=== PATIENT | male | born 1935 | race Caucasian/White ===

== ENCOUNTER → 2017-01-22 | Outpatient (CLI) | payer MEDICARE ==
[~2017-01-22] MED LIST: REGADENOSON INJ 0.4 MG/5 ML DISP.SYRIN IV ONE
--- NOTE | 2017-01-24 16:08 | RADIOLOGY REPORT ---
STRESS TEST REPORT [id number] ROOM#: DATE OF SERVICE: 01/22/2017 AGE: 81Y ORDER#: [id number] REFERRING MD: EMIGDIO HARE M.D. INDICATION: Assess coronary artery disease. Patient has history of four stents, now with symptoms suggestive of coronary artery disease. PROCEDURE PERFORMED REST/STRESS SINGLE ISOTOPE CARDIOLITE SPECT IMAGING WITH IV LEXISCAN STRESS AND GATED SPECT IMAGING CLINICAL HISTORY This is a 81-year-old male patient with known coronary artery disease an status post four stents, has cardiac risk factors of hypertension and hypercholesterolemia. Current symptomatology suggestive of coronary artery disease symptoms. PROCEDURE The patient received IV Lexiscan 0.4 mg infused over ten seconds. The resting heart rate was 79 bpm and increased to 91 bpm at end infusion. The resting BP was 143/68 and remained stable at 145/55 at end infusion. The patient had symptoms of lightheadedness but no chest pain or pressure tightness. The resting 12 lead EKG showed sinus rhythm with one PVC, nonspecific inferior ST changes. At end infusion, no increased ST changes were seen. Myocardial perfusion imaging was performed at rest 60 minutes following injection of 14.74 mCi Cardiolite. The resting images were poor due to patient's tremors from having to raise both upper extremities above the level of the head for optimal imaging. Cabin [place] relaxed his upper extremities to put on each side but this created bone attenuation artifacts on the resting images, more prominently affecting the inferior wall of the perfusion imaging images. Ten seconds after the IV Lexiscan injection, the patient was injected with 45.6 mCi Cardiolite and flushed. Gated post stress tomographic imaging was performed 60 minutes after stress. FINDINGS The overall quality of the study is poor. This is due to patient's inability to raise his upper extremities above his head to allow for rotation of camera around his torso to take adequate images. He was shaking so much that the small engine technician had to allow both his arms by his side and in so doing, there was signif. attenuation of the left lateral areas of the heart by his left upper extremity skeletal muscle structure. Therefore, the images are suboptimal for interpretation and this becomes a nondiagnostic study. The left ventricular cavity is noted to be normal in size on both the rest and stress studies. There is no evidence of abnormal transient ischemic dilatation of the left ventricle. TID ratio was 1.01. SPECT images were suboptimal but seem to show a moderate area of mild reversible ischemia in the basal inferior wall. Gated SPECT imaging showed normal motion and contraction in the basal inferior wall. The left ventricular ejection fraction was calculated to be 48%. IMPRESSION: 1. MYOCARDIAL PERFUSION IMAGING IS NONDIAGNOSTIC. THERE IS A 2. MODERATE AREA OF MILD REVERSIBLE ISCHEMIA IN THE BASAL INFERIOR WALL BUT 3. NO FIXED PERFUSION DEFECTS. OVERALL 4. LEFT VENTRICULAR SYSTOLIC FUNCTION WAS MILDLY IMPAIRED AT 48%, BUT THERE WAS 5. NORMAL MOTION AND CONTRACTION IN THE BASAL INFERIOR WALL. 6. NO PRIOR STUDIES FOR COMPARISON. INTERPRETING PHYSICIAN: EMIGDIO HARE M.D. /: ADOLFO TT: [id number] ID: [id number] /: [id number] TD: [id number] JOB: [id number] cc:Lilly HOLLOWAY DO > MTDD
== END ==
LOC: RAD 07:04
PROVIDERS: ATTEND Internal Medicine Cardiovascular Disease
DX: I25.10 Atherosclerotic heart disease of native coronary artery without angina pectoris (principal)
CPT/HCPCS: 93017; 78452; A9500; J2785; Q9969

== ENCOUNTER → 2017-01-28 | Outpatient (CLI) | payer MEDICARE ==
[2017-01-28 14:32] LABS: ANION GAP 10 (5-19); BLOOD UREA NITROGEN 20 mg/dL (7-20); CALCIUM 10.5 mg/dL (8.4-10.2); CARBON DIOXIDE 24 mmol/L (22-30); CHLORIDE 107 mmol/L (98-107); CREATININE RESULT 1.32 mg/dL (0.52-1.25); Direct HDL 58 mg/dL (>40); GLUCOSE 86 mg/dL (75-110); MAGNESIUM 1.9 mg/dL (1.6-2.3); POTASSIUM 4.1 mmol/L (3.6-5.0); SODIUM 140.8 mmol/L (137-145); TRIGLYCERIDES 105 mg/dL (<150)
[2017-01-28 14:42] LABS: DIRECT LDL 43 mg/dL (<100)
== END ==
LOC: OD 12:49
PROVIDERS: ATTEND Internal Medicine Cardiovascular Disease
DX: E78.5 Hyperlipidemia, unspecified (principal); Z79.899 Other long term (current) drug therapy
CPT/HCPCS: 36415; 80048; 80061; 83735; 84443

== ENCOUNTER 2017-02-05 18:33 | Emergency (ER) | payer MEDICARE ==
--- NOTE | 2017-02-05 20:24 | ER Document Report ---
ED Medical Screen (RME) - General Chief Complaint: Possible Overdose Stated Complaint: RIGHT LEG AND KNEE PAIN Time Seen by Provider: 02/05/17 20:20 Notes: Patient is brought in by due to a near syncopal episode. Patient and were on a plane from [place] today. states while waiting in the airport in [place] she noticed that her slumped over and was drooling and was somewhat unresponsive. She also then noticed that his pain medication bottle was empty and believes he may have took extra pain medication. Patient is not a good historian but does not remember taking extra pain medication. Patient is receiving pain medication for a swelling painful right knee. Patient and states that his knee has been swollen for greater than 1 week and there is no known injury. Patient has had swelling and pain to this knee several times in the past and it apparently got better after fluid was drained off of it. They do not know of any infection or gout history. There is no known trauma. Patient now is back to mental baseline per . TRAVEL OUTSIDE OF THE [place] IN LAST 30 DAYS: No - Related Data Allergies/Adverse Reactions: No Known Allergies Allergy (Unverified 02/05/17 20:02) Past Medical History - Past Medical History Cardiac Medical History: Reports: Hx Hypercholesterolemia, Hx Hypertension Musculoskeltal Medical History: Reports Hx Arthritis
[2017-02-05 20:47] LABS: ABSOLUTE EOSINOPHILS # (AUTO) 0.2 10^3/uL (0.0-0.6); ABSOLUTE LYMPHOCYTES (AUTO) 1.5 10^3/uL (0.5-4.7); ABSOLUTE MONOCYTES (AUTO) 0.9 10^3/uL (0.1-1.4); ABSOLUTE NEUT (AUTO) 4.4 10^3/uL (1.7-8.2); BASOPHILS % (AUTO) 0.5 % (0-2); EOSINOPHILS % (AUTO) 3.1 % (0-6); HEMATOCRIT 43.9 % (37.9-51.0); HEMOGLOBIN 14.2 g/dL (13.5-17.0); HGB HCT DIFFERENCE -1.3; MEAN CORPUSCULAR HEMOGLOBIN 31.2 pg (27.0-33.4); MEAN CORPUSCULAR HGB CONC 32.4 g/dL (32.0-36.0); MEAN CORPUSCULAR VOLUME 96 fl (80-97); MONOCYTES % (AUTO) 12.1 % (3-13); RED BLOOD COUNT 4.56 10^6/uL (4.35-5.55); SEGMENTED NEUTROPHILS % (AUTO) 62.3 % (42-78)
--- NOTE | 2017-02-05 20:48 | RADIOLOGY REPORT (SQ) ---
EXAM DESCRIPTION: KNEE RIGHT 3 VIEWS COMPLETED DATE/TIME: 02/05/2017 8:37 pm REASON FOR STUDY: pain/swelling COMPARISON: None. NUMBER OF VIEWS: Three views. TECHNIQUE: AP, lateral, and sunrise patella radiographic images acquired of the right knee. LIMITATIONS: None. FINDINGS: MINERALIZATION: Normal. BONES: No acute fracture or dislocation. No worrisome bone lesions. There are prominent patellar oste ophytes. JOINT: There is joint space narrowing in all compartments. OTHER: There is vascular calcification. IMPRESSION: Osteoarthritic changes. No acute findings. TECHNICAL DOCUMENTATION: JOB ID: [id number] [employer]- All Rights Reserved
[2017-02-05 20:55] LABS: ALANINE AMINOTRANSFERASE 31 U/L (21-72); ALBUMIN 4.1 g/dL (3.5-5.0); ALKALINE PHOSPHATASE 71 U/L (38-126); ANION GAP 13 (5-19); ASPARTATE AMINO TRANSFERASE 35 U/L (17-59); BILIRUBIN,DIRECT 0.4 mg/dL (0.0-0.4); BILIRUBIN,TOTAL 0.7 mg/dL (0.2-1.3); BLOOD UREA NITROGEN 28 mg/dL (7-20); CALCIUM 10.9 mg/dL (8.4-10.2); CARBON DIOXIDE 23 mmol/L (22-30); CHLORIDE 105 mmol/L (98-107); CREATININE RESULT 1.49 mg/dL (0.52-1.25); GLUCOSE 109 mg/dL (75-110); POTASSIUM 3.6 mmol/L (3.6-5.0); SODIUM 141.4 mmol/L (137-145); TOTAL PROTEIN 7.3 g/dL (6.3-8.2)
[2017-02-05] MEDS ORDERED: HYDROCHLOROTHIAZIDE 25 MG TABLET PO ONE (23:02)
--- NOTE | 2017-02-05 23:03 | ER Document Report ---
ED General - General Chief Complaint: Possible Overdose Stated Complaint: RIGHT LEG AND KNEE PAIN Time Seen by Provider: 02/05/17 20:20 Notes: Patient is an 81-year-old male who presents with complaint of being poorly responsive. The says that he has chronic knee pain it has been worse over the last month. They went on a trip to [place]. On the way back they were split up on the plane and he had his first class. says that he had 3 Percocet pills in his bottle before she from him playing. When he rolled off the plane he was poorly responsive and drooling. She knows that his Percocet bottle was empty and she spent suspect that he took all 3 pills on the plane flight over. Patient himself does not remember doing this. Patient says he does not know why his pill bottles empty. No head trauma. No falls. No injuries. He denies headache. No chest pain. No shortness of breath. The only complaint of pain he has is in his right knee. He said no redness or warmth to the knee. He is to follow with a orthopedist in [place]. He has not yet followed with orthopedist here in [place] since they moved back to [place] 2 months ago. TRAVEL OUTSIDE OF THE [place] IN LAST 30 DAYS: No - Related Data Allergies/Adverse Reactions: No Known Allergies Allergy (Unverified 02/05/17 20:02) Past Medical History - Social History Smoking Status: Unknown if Ever Smoked Frequency of alcohol use: None Drug Abuse: None Family History: Reviewed & Not Pertinent - Past Medical History Cardiac Medical History: Reports: Hx Hypercholesterolemia, Hx Hypertension Musculoskeltal Medical History: Reports Hx Arthritis Review of Systems - Review of Systems Notes: My Normal Review Basic REVIEW OF SYSTEMS: CONSTITUTIONAL : Denies fever, chills, or sweats. Denies recent illness. EENT: Denies eye, ear, throat, or mouth pain or symptoms. Denies nasal or sinus congestion. CARDIOVASCULAR: Denies chest pain. RESPIRATORY: Denies cough, cold, or chest congestion. Denies shortness of breath, difficulty breathing, or wheezing. GASTROINTESTINAL: Denies abdominal pain. Denies nausea, vomiting, or diarrhea. Denies constipation. Last BM: MUSCULOSKELETAL: Right knee pain SKIN: Denies rash or skin lesions. NEUROLOGICAL: Mental status that is now resolved. Denies headache. Denies weakness or paralysis or loss of use of either side. Denies problems with gait or speech. Denies sensory or motor loss. ALL OTHER SYSTEMS REVIEWED AND NEGATIVE. Physical Exam - Vital signs Vitals: Temp Pulse BP Pulse Ox 97.5 F 102 H 160/103 H 97 02/05/17 18:47 02/05/17 18:47 02/05/17 18:47 02/05/17 18:47 - Notes Notes: General Appearance: Well nourished, alert, cooperative, no acute distress, mild obvious discomfort. Vitals: reviewed, See vital signs table. Head: no swelling or tenderness to the head Eyes: PERRL, EOMI, Conjuctiva clear Mouth: No decreasd moisture Neck: Supple, no neck tenderness, No thyromegaly Lungs: No wheezing, No rales, No rhonci, No accessory muscle use, good air exchange bilaterally. Heart: Normal rate, Regular rythm, No murmur, no rub Abdomen: Normal BS, soft, No rigidity, No abdominal tenderness, No guarding, no rebound, no abdominal masses, no organomegaly Extremities: strength 5/5 in all extremities, good pulses in all extremities, some chronic swelling to the right knee. No redness or warmth. Some pain to palpation over the patella. We are able to put his knee through some range of motion. He does have some pain in doing so but she does have passive range of motion without stiffness. No edema. Skin: warm, dry, appropriate color, no rash Neuro: speech clear, oriented x 3, normal affect, responds appropriately to questions. Nerves II through XII are intact. Distal sensation intact. Good strength in all 4 extremities. Course - Re-evaluation Re-evalutation: 02/06/17 05:55 Patient requests that I refill the Percocet prescription. I informed him that I do not think this is a good idea. The medicines that he actually took in the plane were actually his grandsons according to the . She said that he used to get some from his orthopedist but not had them in a while. He does have Ultram at home. The thinks he still has some Ultram pills but the patient himself says that he thinks is all. I will write a prescription for Ultram. I informed the that if when they get home she realizes that he does still have full bottle of Ultram then she can tear up my prescription. Otherwise seems very reliable and agrees to do this. Patient does not have any signs of infection to the right knee. Seems to be his chronic swelling. X-ray shows arthritis. Patient uses a cane but informed him that he should be using a walker. The says she has been trying to get him to use a walker but he refuses. I talked to the patient at length about how walker would be much easier on his knee and gave him having to put as much pressure on his knee. Also will refer him to local orthopedist. I encouraged him return to ER if is any redness or swelling to the knee if they have any further concerns. Patient agrees with plan and agrees with plan and patient will be discharged home. Dictation of this chart was performed using voice recognition software; therefore, there may be some unintended grammatical errors. - Vital Signs Vital signs: Temp Pulse Resp BP Pulse Ox 97.5 F 50 L 18 170/64 H 99 02/05/17 18:47 02/05/17 22:07 02/05/17 22:07 02/05/17 23:01 02/05/17 23:01 - Laboratory Result Diagrams: 02/05/17 20:26 02/05/17 20:26 Laboratory results interpreted by me: 02/05/17 02/05/17 20:26 20:26 RDW 15.0 H BUN 28 H Creatinine 1.49 H Est GFR ( Amer) 55 L Est GFR (Non-Af Amer) 45 L Calcium 10.9 H Discharge - Discharge Clinical Impression: Knee pain, right Qualifiers: Chronicity: chronic Qualified Code(s): M25.561 - Pain in right knee Opiate overdose Qualifiers: Encounter type: initial encounter Injury intent: accidental or unintentional Qualified Code(s): T40.601A - Poisoning by unspecified narcotics, accidental ( unintentional), initial encounter Hypertension Qualifiers: Hypertension type: essential hypertension Qualified Code(s): I10 - Essential ( primary) hypertension Condition: Good Disposition: HOME, SELF-CARE Additional Instructions: Please use your walker at home. Please take the Tramadol for pain at home. Please be sure to take your medications as prescribed. Please follow up with Dr. Garcia, orthopedist, in regards to your knee pain. Return to th ER immediately if you have worsening pain, fevers, redness or increased warmth to the knee, or if you feel unwell. Return to the ER immediately if Mr. Rodriguez is not acting appropriately Prescriptions: Tramadol HCl 50 mg PO Q6 PRN #20 tablet PRN Reason: Referrals: LANDY GARCIA MD [ACTIVE STAFF] - Follow up in 3-5 days TONY TONG DO [Primary Care Provider] - 02/07/17
[2017-02-05 23:06] VITALS: BP 170/64
== END 2017-02-05 23:20 | disposition home or self-care (01) ==
LOC: ER 18:33
DX: T40.601A Poisoning by unspecified narcotics, accidental (unintentional), initial encounter (principal); Y92.813 Airplane as the place of occurrence of the external cause; M17.11 Unilateral primary osteoarthritis, right knee; M25.561 Pain in right knee; G89.29 Other chronic pain; I10 Essential (primary) hypertension; Z79.891 Long term (current) use of opiate analgesic
CPT/HCPCS: 36415; 80053; 85025; 99284

== ENCOUNTER → 2017-08-13 | Outpatient (CLI) | payer MEDICARE ==
[2017-08-13 15:50] LABS: ABSOLUTE BASOPHILS # (AUTO) 0.1 10^3/uL (0.0-0.2); ABSOLUTE EOSINOPHILS # (AUTO) 0.4 10^3/uL (0.0-0.6); ABSOLUTE LYMPHOCYTES (AUTO) 2.6 10^3/uL (0.5-4.7); ABSOLUTE MONOCYTES (AUTO) 0.8 10^3/uL (0.1-1.4); ABSOLUTE NEUT (AUTO) 3.2 10^3/uL (1.7-8.2); BASOPHILS % (AUTO) 0.8 % (0-2); EOSINOPHILS % (AUTO) 5.3 % (0-6); HEMATOCRIT 43.5 % (37.9-51.0); HEMOGLOBIN 14.4 g/dL (13.5-17.0); LYMPHOCYTES % (AUTO) 36.9 % (13-45); MEAN CORPUSCULAR HEMOGLOBIN 30.3 pg (27.0-33.4); MEAN CORPUSCULAR HGB CONC 33.2 g/dL (32.0-36.0); MEAN CORPUSCULAR VOLUME 91 fl (80-97); MONOCYTES % (AUTO) 11.7 % (3-13); PLATELET COUNT 125 10^3/uL (150-450); RED BLOOD COUNT 4.76 10^6/uL (4.35-5.55); RED CELL DISTRIBUTION WIDTH 14.6 % (11.5-14.0); SEGMENTED NEUTROPHILS % (AUTO) 45.3 % (42-78); TOTAL CELLS COUNTED % (AUTO) 100 %
[2017-08-13 16:12] LABS: ALBUMIN 3.6 g/dL (3.5-5.0); ANION GAP 7 (5-19); BLOOD UREA NITROGEN 23 mg/dL (7-20); CALCIUM 9.5 mg/dL (8.4-10.2); CARBON DIOXIDE 26 mmol/L (22-30); CHLORIDE 108 mmol/L (98-107); GLUCOSE 71 mg/dL (75-110); PHOSPHORUS 3.3 mg/dL (2.5-4.5); POTASSIUM 4.3 mmol/L (3.6-5.0); SODIUM 140.9 mmol/L (137-145)
[2017-08-13 16:14] LABS: APPEARANCE,URINE CLEAR; BILIRUBIN,URINE NEGATIVE (NEGATIVE); COLOR,URINE YELLOW; GLUCOSE, URINE NEGATIVE (NEGATIVE); KETONES,URINE NEGATIVE (NEGATIVE); LEUKOCYTE ESTERASE,URINE NEGATIVE (NEGATIVE); NITRITE,URINE NEGATIVE (NEGATIVE); PROTEIN,URINE NEGATIVE (NEGATIVE); URINE SPECIFIC GRAVITY 1.009; UROBILINOGEN,URINE NEGATIVE mg/dL (<2.0)
[2017-08-15 10:38] LABS: MICROALBUMIN URINE 44.4 ug/mL (Not Estab.)
== END ==
LOC: OD 15:18
PROVIDERS: ATTEND Internal Medicine Nephrology
DX: N18.3 Chronic kidney disease, stage 3 (moderate) (principal); I25.10 Atherosclerotic heart disease of native coronary artery without angina pectoris; E78.2 Mixed hyperlipidemia
CPT/HCPCS: 36415; 80048; 81001; 82040; 82043; 82306; 82570; 83970; 84100; 85025

== ENCOUNTER → 2017-09-27 | Outpatient (CLI) | payer MEDICARE ==
--- NOTE | 2017-09-27 14:36 | RADIOLOGY REPORT (SQ) ---
EXAM DESCRIPTION: U/S RETROPERITON (RENAL/AORTA) COMPLETED DATE/TIME: 09/27/2017 2:24 pm REASON FOR STUDY: CKD STAGE 3 N18.3 CHRONIC KIDNEY DISEASE, STAGE 3 (MODERATE) COMPARISON: None. TECHNIQUE: Dynamic and static grayscale images acquired of the kidneys and bladder and recorded on P ACS. Additional selected color Doppler and spectral images recorded. LIMITATIONS: Body habitus, bowel gas FINDINGS: Limited visualization kidneys. Both kidneys are normal size. Grossly normal cortical thi ckness. No hydronephrosis. Marked bladder distention. No gross bladder stones IMPRESSION: Very limited study. No hydronephrosis. Marked distention of the urinary bladder. TECHNICAL DOCUMENTATION: JOB ID: [id number] [employer]- All Rights Reserved [place] location - IP/workstation name: [email or web address]
== END ==
LOC: RAD 13:41
PROVIDERS: ATTEND Internal Medicine Nephrology
DX: N18.3 Chronic kidney disease, stage 3 (moderate) (principal)
CPT/HCPCS: 76770

== ENCOUNTER → 2017-10-14 | Outpatient (CLI) | payer MEDICARE ==
[2017-10-14 14:16] LABS: ANION GAP 12 (5-19); BLOOD UREA NITROGEN 42 mg/dL (7-20); CALCIUM 10.4 mg/dL (8.4-10.2); CARBON DIOXIDE 26 mmol/L (22-30); CHLORIDE 111 mmol/L (98-107); GLUCOSE 83 mg/dL (75-110); POTASSIUM 4.9 mmol/L (3.6-5.0); SODIUM 148.5 mmol/L (137-145)
[2017-10-15 12:38] LABS: CREATININE URINE 146.8 mg/dL (Not Estab.); MICROALBUMIN URINE 38.2 ug/mL (Not Estab.)
== END ==
LOC: OD 13:15
PROVIDERS: ATTEND Internal Medicine Nephrology
DX: N18.3 Chronic kidney disease, stage 3 (moderate) (principal); R80.9 Proteinuria, unspecified; E21.3 Hyperparathyroidism, unspecified
CPT/HCPCS: 36415; 80048; 82043; 82570; 83970

== ENCOUNTER → 2017-11-19 | Outpatient (CLI) | payer MEDICARE ==
[2017-11-19 18:51] LABS: ANION GAP 9 (5-19); BLOOD UREA NITROGEN 34 mg/dL (7-20); CALCIUM 10.2 mg/dL (8.4-10.2); CARBON DIOXIDE 28 mmol/L (22-30); CHLORIDE 107 mmol/L (98-107); GLUCOSE 71 mg/dL (75-110); SODIUM 144.2 mmol/L (137-145)
== END ==
LOC: OD 17:33
PROVIDERS: ATTEND Internal Medicine Nephrology
DX: N17.9 Acute kidney failure, unspecified (principal); N18.3 Chronic kidney disease, stage 3 (moderate)
CPT/HCPCS: 36415; 80048

== ENCOUNTER → 2017-11-23 | Outpatient (CLI) | payer MEDICARE ==
[2017-11-23 12:38] LABS: CHOLESTEROL 133.79 mg/dL (0-200); TRIGLYCERIDES 71 mg/dL (<150)
[2017-11-23 12:40] LABS: ALANINE AMINOTRANSFERASE 34 U/L (21-72); ALBUMIN 3.7 g/dL (3.5-5.0); ALKALINE PHOSPHATASE 56 U/L (38-126); ASPARTATE AMINO TRANSFERASE 35 U/L (17-59); BILIRUBIN,DIRECT 0.3 mg/dL (0.0-0.4); BILIRUBIN,TOTAL 0.4 mg/dL (0.2-1.3); TOTAL PROTEIN 6.3 g/dL (6.3-8.2)
[2017-11-23 12:41] LABS: ANION GAP 10 (5-19); BLOOD UREA NITROGEN 35 mg/dL (7-20); CALCIUM 10.2 mg/dL (8.4-10.2); CARBON DIOXIDE 26 mmol/L (22-30); CHLORIDE 111 mmol/L (98-107); GLUCOSE 89 mg/dL (75-110); POTASSIUM 5.2 mmol/L (3.6-5.0); SODIUM 147.4 mmol/L (137-145)
[2017-11-23 12:49] LABS: DIRECT LDL 55 mg/dL (<100)
== END ==
LOC: OD 10:25
PROVIDERS: ATTEND Internal Medicine Cardiovascular Disease
DX: E78.5 Hyperlipidemia, unspecified (principal); I10 Essential (primary) hypertension; Z79.899 Other long term (current) drug therapy
CPT/HCPCS: 36415; 80048; 80061; 80076; 83735; 84443

== ENCOUNTER → 2018-02-06 | Outpatient (CLI) | payer MEDICARE ==
[2018-02-06 14:26] LABS: ANION GAP 15 (5-19); BLOOD UREA NITROGEN 34 mg/dL (7-20); CALCIUM 10.1 mg/dL (8.4-10.2); CARBON DIOXIDE 21 mmol/L (22-30); CHLORIDE 109 mmol/L (98-107); GLUCOSE 94 mg/dL (75-110); POTASSIUM 4.7 mmol/L (3.6-5.0); SODIUM 144.8 mmol/L (137-145)
== END ==
LOC: OD 13:24
PROVIDERS: ATTEND Internal Medicine Geriatric Medicine
DX: N18.3 Chronic kidney disease, stage 3 (moderate) (principal)
CPT/HCPCS: 36415; 80048

== ENCOUNTER 2018-03-20 12:29 | Inpatient (IN) | payer MEDICARE ==
--- NOTE | 2018-03-20 12:44 | ER Document Report ---
ED Medical Screen (RME) - General Chief Complaint: Weakness Stated Complaint: CONFUSION Time Seen by Provider: 03/20/18 12:39 Notes: This 82-year-old male patient became confused yesterday on a ride down to [place] to the [place] clinic to have his hearing checked. He also complained of pain over the left side of his head. Today the pain seems to be better, but the confusion is as bad or worse. The patient has very deliberate speech, states he has difficulty reading. He was supposed to have outpatient lab work done today, as they are following his kidney function. I have greeted and performed a rapid initial assessment of this patient. A comprehensive ED assessment and evaluation of the patient, analysis of test results and completion of the medical decision making process will be conducted by additional ED providers. TRAVEL OUTSIDE OF THE [place] IN LAST 30 DAYS: No - Related Data Allergies/Adverse Reactions: No Known Allergies Allergy (Verified 03/20/18 12:31) Past Medical History - Past Medical History Cardiac Medical History: Reports: Hx Hypercholesterolemia, Hx Hypertension Musculoskeltal Medical History: Reports Hx Arthritis Physical Exam - Vital signs Vitals: Temp Pulse Resp BP Pulse Ox 98.7 F 81 14 131/59 H 99 03/20/18 12:37 03/20/18 12:37 03/20/18 12:37 03/20/18 12:37 03/20/18 12:37 Course - Vital Signs Vital signs: Temp Pulse Resp BP Pulse Ox 98.7 F 81 14 131/59 H 99 03/20/18 12:37 03/20/18 12:37 03/20/18 12:37 03/20/18 12:37 03/20/18 12:37 Doctor's Discharge - Discharge Referrals: YARELIS HARMON MD [Primary Care Provider] - Follow up as needed
--- NOTE | 2018-03-20 13:07 | RADIOLOGY REPORT (SQ) ---
EXAM DESCRIPTION: CT HEAD WITHOUT COMPLETED DATE/TIME: 03/20/2018 12:56 pm REASON FOR STUDY: Confusion times 2 days COMPARISON: None. TECHNIQUE: Axial images acquired through the brain without intravenous contrast. Images reviewed wi th bone, brain and subdural windows. Additional sagittal and coronal reconstructions were generated. Images stored on PACS. All CT scanners at this facility use dose modulation, iterative reconstruction, and/or weight based d osing when appropriate to reduce radiation dose to as low as reasonably achievable (ALARA). [facility]: Dose Right [facility]: CareDose [facility]: Dose Right [facility]: Teradose 4D [facility]: [employer] RADIATION DOSE: CT Rad equipment meets quality standard of care and radiation dose reduction techniq ues were employed. CTDIvol: 53.2 mGy. DLP: 1097 mGy-cm. mGy. LIMITATIONS: None. FINDINGS: VENTRICLES: Normal size and contour. CEREBRUM: Early subacute moderate-sized nonhemorrhagic infarct in the left occipital and posterior te mporal cortex and subcortical white matter, best shown on axial images 03/19/2016. There is sulcal ef facement but no midline shift Remainder of the cerebral hemispheres are grossly intact. No midline shift. CEREBELLUM: No masses. No hemorrhage. No alteration of density. No evidence for acute infarction. EXTRAAXIAL SPACES: No fluid collections. No masses. ORBITS AND GLOBE: No intra- or extraconal masses. Normal contour of globe without masses. CALVARIUM: No fracture. PARANASAL SINUSES: No fluid or mucosal thickening. SOFT TISSUES: No mass or hematoma. OTHER: No other significant finding. 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 EVIDENCE OF ACUTE STROKE: Yes COMMENT: Quality ID # [id number]: Final reports with documentation of one or more dose reduction techniques (e.g., Automated exposure control, adjustment of the mA and/or kV according to patient size, use of iterative reconstruction technique) TECHNICAL DOCUMENTATION: JOB ID: [id number] [employer]- All Rights Reserved [place] location - IP/workstation name: [email or web address]
[2018-03-20 13:20] LABS: ABSOLUTE EOSINOPHILS # (AUTO) 0.3 10^3/uL (0.0-0.6); ABSOLUTE LYMPHOCYTES (AUTO) 2.1 10^3/uL (0.5-4.7); ABSOLUTE MONOCYTES (AUTO) 0.7 10^3/uL (0.1-1.4); ABSOLUTE NEUT (AUTO) 4.9 10^3/uL (1.7-8.2); BASOPHILS % (AUTO) 0.6 % (0-2); EOSINOPHILS % (AUTO) 3.5 % (0-6); HEMATOCRIT 39.9 % (37.9-51.0); HEMOGLOBIN 13.4 g/dL (13.5-17.0); LYMPHOCYTES % (AUTO) 26.3 % (13-45); MEAN CORPUSCULAR HEMOGLOBIN 30.9 pg (27.0-33.4); MEAN CORPUSCULAR HGB CONC 33.6 g/dL (32.0-36.0); MEAN CORPUSCULAR VOLUME 92 fl (80-97); MONOCYTES % (AUTO) 8.2 % (3-13); PLATELET COUNT 144 10^3/uL (150-450); RED BLOOD COUNT 4.34 10^6/uL (4.35-5.55); RED CELL DISTRIBUTION WIDTH 13.9 % (11.5-14.0); SEGMENTED NEUTROPHILS % (AUTO) 61.4 % (42-78); TOTAL CELLS COUNTED % (AUTO) 100 %
[2018-03-20 13:31] LABS: ALANINE AMINOTRANSFERASE 33 U/L (21-72); ALBUMIN 3.7 g/dL (3.5-5.0); ALKALINE PHOSPHATASE 53 U/L (38-126); ANION GAP 11 (5-19); ASPARTATE AMINO TRANSFERASE 30 U/L (17-59); BILIRUBIN,DIRECT 0.3 mg/dL (0.0-0.4); BILIRUBIN,TOTAL 0.6 mg/dL (0.2-1.3); BLOOD UREA NITROGEN 43 mg/dL (7-20); CALCIUM 10.4 mg/dL (8.4-10.2); CARBON DIOXIDE 22 mmol/L (22-30); CHLORIDE 109 mmol/L (98-107); CREATINE KINASE 127 U/L (55-170); GLUCOSE 104 mg/dL (75-110); POTASSIUM 5.2 mmol/L (3.6-5.0); SODIUM 141.7 mmol/L (137-145); TOTAL PROTEIN 6.6 g/dL (6.3-8.2)
[2018-03-20 13:43] LABS: CREATINE KINASE MB 1.4 ng/mL (<4.55); TROPONIN I 0.015 ng/mL
--- NOTE | 2018-03-20 14:03 | ER Document Report ---
ED Neuro Symptoms/Deficit - General Chief Complaint: Weakness Stated Complaint: CONFUSION Time Seen by Provider: 03/20/18 12:39 Notes: Patient says that he "cannot read, cannot talk right," since yesterday. He says he feels "weird". Patient's says that when he tries to talk that it is coming out as "gibberish", although it does seem to be a little bit better today than yesterday. Patient says he is having trouble with his thinking process. He can walk and does not have any weakness of either arm or leg. Has never had this previously. No history of stroke. Says he also had a headache on the left side of his head yesterday which is now gone. Other history: Cholecystectomy, bowel resection, kidney disease, hypertension, high cholesterol, coronary stents times for a couple of years ago. Patient had a sleep study done Saturday night. TRAVEL OUTSIDE OF THE [place] IN LAST 30 DAYS: No - Related Data Allergies/Adverse Reactions: No Known Allergies Allergy (Verified 03/20/18 12:31) Past Medical History - Social History Smoking Status: Unknown if Ever Smoked Frequency of alcohol use: None Drug Abuse: None Family History: Reviewed & Not Pertinent Patient has suicidal ideation: No Patient has homicidal ideation: No - Past Medical History Cardiac Medical History: Reports: Hx Hypercholesterolemia, Hx Hypertension Neurological Medical History: Denies: Hx Cerebrovascular Accident, Hx Seizures Musculoskeletal Medical History: Reports Hx Arthritis Past Surgical History: Reports: Hx Cholecystectomy, Hx Colostomy - Partial colectomy for infection, resulted in colostomy, reversed Review of Systems - Review of Systems Notes: REVIEW OF SYSTEMS: CONSTITUTIONAL : Denies fever. EENT: Denies eye, ear, nose or mouth or throat pain or other symptoms. CARDIOVASCULAR: Denies chest pain. RESPIRATORY: Denies cough, chest congestion, or shortness of breath. GASTROINTESTINAL: Denies abdominal pain or nausea, vomiting, or diarrhea. GENITOURINARY: Denies difficulty or painful urinating, urinary frequency, blood in urine. MUSCULOSKELETAL: Denies back or neck pain. Denies joint pain or swelling. SKIN: Denies rash or skin lesions. NEUROLOGICAL: Denies LOC or altered mental status. Had left-sided headache yesterday, but is gone today. Denies sensory loss or motor deficits. Intermittently confused. ALL OTHER SYSTEMS REVIEWED AND NEGATIVE. Physical Exam - Vital signs Vitals: Temp Pulse Resp BP Pulse Ox 98.7 F 81 14 131/59 H 99 03/20/18 12:37 03/20/18 12:37 03/20/18 12:37 03/20/18 12:37 03/20/18 12:37 Interpretation: Normal - Notes Notes: PHYSICAL EXAMINATION: GENERAL: Well-appearing, in no acute distress. Can ambulate without assistance. HEAD: Atraumatic, normocephalic. EYES: Pupils equal round and reactive to light, extraocular movements intact. ENT: oropharynx clear without exudates. Moist mucous membranes. NECK: Normal range of motion, supple. No b carotid ruits heard. LUNGS: Breath sounds clear and equal bilaterally. HEART: Regular rate and rhythm without murmurs. ABDOMEN: Soft, nontender. No guarding or rebound. No masses. BACK: No tenderness throughout entire back. EXTREMITIES: Normal range of motion without pain. NEUROLOGICAL: Speech is understandable, but is somewhat jerky and not smooth flowing. Seems as if he has to think about his words as he is pronouncing them. Normal gait. Normal sensory, motor, and reflex exams. Awake, alert, and oriented x3. Cranial nerves normal. PSYCH: Normal mood, normal affect. SKIN: Warm, dry, no rashes. Course - Re-evaluation Re-evalutation: 03/20/18 14:27 Discussed the results of patient's CT scan with Dr. Russell, his primary care provider. Patient will be started on aspirin and admitted to [facility]. - Vital Signs Vital signs: Temp Pulse Resp BP Pulse Ox 98.7 F 81 14 131/59 H 99 03/20/18 12:37 03/20/18 12:37 03/20/18 12:37 03/20/18 12:37 03/20/18 12:37 - Laboratory Result Diagrams: 03/20/18 12:55 03/20/18 12:55 Laboratory results interpreted by me: 03/20/18 03/20/18 12:55 12:55 RBC 4.34 L Hgb 13.4 L Plt Count 144 L Potassium 5.2 H Chloride 109 H BUN 43 H Creatinine 2.32 H Est GFR ( Amer) 33 L Est GFR (Non-Af Amer) 27 L Calcium 10.4 H - Diagnostic Test Radiology reviewed: Image reviewed, Reports reviewed - CT scan shows a subacute nonhemorrhagic infarct in the left occipital and posterior temporal lobes. - EKG Interpretation by Me EKG shows normal: Sinus rhythm Rate: Normal Heart block present: 1st Degree Critical Care Note - Critical Care Note Total time excluding time spent on procedures (mins): 40 Discharge - Discharge Clinical Impression: Stroke Condition: Stable Disposition: ADMITTED INPATIENT Admitting Provider: Yvonne Unit Admitted: [facility]
[2018-03-20] MEDS ORDERED: ASPIRIN 81 MG TABLET, CHEWABLE PO ONE (14:27)
[2018-03-20 14:54] LABS: APPEARANCE,URINE CLEAR; BILIRUBIN,URINE NEGATIVE (NEGATIVE); COLOR,URINE YELLOW; GLUCOSE, URINE NEGATIVE (NEGATIVE); KETONES,URINE NEGATIVE (NEGATIVE); LEUKOCYTE ESTERASE,URINE MODERATE (NEGATIVE); NITRITE,URINE NEGATIVE (NEGATIVE); PROTEIN,URINE NEGATIVE (NEGATIVE); URINE SPECIFIC GRAVITY 1.011; UROBILINOGEN,URINE NEGATIVE mg/dL (<2.0)
--- NOTE | 2018-03-20 20:13 | PDOC H&P ---
History of Present Illness Admission Date/PCP: 03/20/18 14:29 YARELIS EDEN History of Present Illness: HENRY VAZQUEZ is a 82 year old male patient known to my practice who presented to the ED with complain of weakness nfusion. Patient reported that he had sleep study completed yesterday at local sleep study facility. He subsequently went on his usual daily activities but developed some discomfort around the site of electrode placement for his sleep study. [facility] but noted that his headache discomfort persist and at about the time of leaving the facility he was not able to speak. He went back home, took some Tylenol and lay down. reported that his speech thereafter have been gibberish in character and patient demonstrated difficulty with finding his words. He denied any palpitation, chest pain, dizziness, fever or chills.. No nausea, vomiting, abdominal pain, diarrhea, flank pain, dysuria, hematuria or difficulty with voiding. His initial evaluation in the ED was remarkable for speech pattern abnormality and CT scan of head did revealed subacute occipital and posterior left temporal lobe nonhemorrhagic infarct. He was advised hospitalization for further evaluation and management. His morbidities include Hypertension, Hyperlipidemia, Rheumatoid Arthritis, obstructive sleep apnea, persistent insomnia, chronic kidney disease stage 3, and glaucoma. He denied cigarette smoking, alcohol abuse ofr illicit drug usage. Past Medical History Cardiac Medical History: Reports: Hyperlipidema, Hypertension Neurological Medical History: Denies: Seizures Musculoskeltal Medical History: Reports: Arthritis Past Surgical History Past Surgical History: Reports: Cholecystectomy, Colostomy - Partial colectomy for infection, resulted in colostomy, reversed Social History Smoking Status: Unknown if Ever Smoked Last Time Smoked: 1957 Frequency of Alcohol Use: Rare Hx Recreational Drug Use: No Drugs: None - Advance Directive Resuscitation Status: Full Code Family History Family History: Reviewed & Not Pertinent Parental Family History Reviewed: Yes Children Family History Reviewed: Yes Sibling(s) Family History Reviewed.: Yes Medication/Allergy Home Medications: Aspirin [Aspirin EC] 81 mg PO DAILY 03/20/18 Bimatoprost [Lumigan 0.01% Oph Soln 2.5 ml/Bottle] 1 drop OU DAILY 03/20/18 Brimonidine Tartrate/Timolol [Combigan 0.2%-0.5% Eye Drops] 1 drop OU BID Calcifediol [Rayaldee] 30 mcg PO QHS 03/20/18 Hydroxychloroquine Sulfate [Plaquenil 200 mg Tablet] 200 mg PO BID 03/20/18 Lisinopril [Prinivil 10 mg Tablet] 10 mg PO DAILY 03/20/18 Metoprolol Succinate [Toprol Xl 25 mg Tab.sr] 25 mg PO DAILY 03/20/18 Mirabegron [Myrbetriq] 50 mg PO DAILY 03/20/18 Multivitamin [Daily Multiple Vitamin] 1 tab PO DAILY 03/20/18 Quetiapine Fumarate [Seroquel] 50 mg PO QHS 03/20/18 Rosuvastatin Calcium [Crestor 10 mg Tablet] 10 mg PO QHS 03/20/18 Tramadol HCl [Ultram 50 mg Tablet] 50 mg PO BIDP PRN 03/20/18 Trazodone HCl [Desyrel 50 mg Tablet] 50 mg PO QHS 03/20/18 Allergies/Adverse Reactions: No Known Allergies Allergy (Verified 03/20/18 12:31) Review of Systems Constitutional: PRESENT: headache(s) - more of discomfirt as per patient assessment Eyes: PRESENT: visual disturbances - CAWG Ears: PRESENT: hearing changes Nose, Mouth, and Throat: PRESENT: headache(s). ABSENT: as per HPI, mouth pain, sore throat, vertigo, other Cardiovascular: ABSENT: chest pain, dyspnea on exertion, edema, orthropnea, palpitations Respiratory: ABSENT: cough, hemoptysis Gastrointestinal: ABSENT: abdominal pain, constipation, diarrhea, hematemesis, hematochezia, nausea, vomiting Genitourinary: ABSENT: dysuria, hematuria Musculoskeletal: PRESENT: deformity - related to multiple joint involvement with Rheumatid arthritis and osteoarthritis Integumentary: ABSENT: rash, wounds Neurological: PRESENT: abnormal speech. ABSENT: as per HPI, abnormal gait, abnormal movements, confusion, convulsions, dizziness, focal weakness, frequent falls, lack of coordination, memory loss, numbness, paresthesias, restless legs , syncope, tingling, tremor(s), vertigo, weakness, other Psychiatric: ABSENT: anxiety, depression, homidical ideation, suicidal ideation Endocrine: ABSENT: cold intolerance, heat intolerance, polydipsia, polyuria Hematologic/Lymphatic: ABSENT: easy bleeding, easy bruising, lymphadenopathy Physical Exam Vital Signs: Temp Pulse Resp BP Pulse Ox 98.3 F 82 16 116/67 100 03/20/18 16:20 03/20/18 16:20 03/20/18 16:20 03/20/18 16:20 03/20/18 16:20 General appearance: PRESENT: no acute distress, well-developed, well-nourished Head exam: PRESENT: atraumatic, normocephalic Eye exam: PRESENT: conjunctiva pink, EOMI, PERRLA. ABSENT: scleral icterus Ear exam: PRESENT: normal external ear exam Mouth exam: PRESENT: moist Respiratory exam: PRESENT: clear to auscultation heaven Cardiovascular exam: PRESENT: RRR. ABSENT: diastolic murmur, rubs, systolic murmur Pulses: PRESENT: +1 pedal pulses bilateral Vascular exam: PRESENT: normal capillary refill. ABSENT: pallor GI/Abdominal exam: PRESENT: normal bowel sounds, soft. ABSENT: distended, guarding, mass, organolmegaly, rebound, tenderness Rectal exam: PRESENT: deferred Extremities exam: ABSENT: pedal edema Musculoskeletal exam: PRESENT: deformity - related to rheumatoid and osteoarthritis Neurological exam: PRESENT: alert, awake, oriented to person, oriented to place , oriented to time, oriented to situation, CN II-XII grossly intact, other - demonstrable dysarthria. ABSENT: motor sensory deficit Psychiatric exam: PRESENT: appropriate affect, normal mood. ABSENT: homicidal ideation, suicidal ideation Skin exam: PRESENT: dry, warm Results Laboratory Results: I reviewed his laboratory results on [employer] and form significant part of my medical decision making. Impressions: Head CT 03/20/18 12:42 IMPRESSION: Early subacute moderate-sized nonhemorrhagic infarct left occipital and posterior temporal lobes. EVIDENCE OF ACUTE STROKE: Yes Assessment & Plan - Diagnosis (1) Stroke, thrombotic Qualifiers: Precerebral and cerebral artery: unspecified cerebral artery Qualified Code (s): I63.30 - Cerebral infarction due to thrombosis of unspecified cerebral artery Is this a current diagnosis for this admission?: Yes Plan: See admitting attending physician orders. (2) Dysarthria due to acute stroke Is this a current diagnosis for this admission?: Yes Plan: See admitting attending physician orders. (3) HTN (hypertension) Qualifiers: Hypertension type: essential hypertension Qualified Code(s): I10 - Essential (primary) hypertension Is this a current diagnosis for this admission?: Yes Plan: See admitting attending physician orders. (4) HLD (hyperlipidemia) Qualifiers: Hyperlipidemia type: unspecified Qualified Code(s): E78.5 - Hyperlipidemia , unspecified Is this a current diagnosis for this admission?: Yes Plan: See admitting attending physician orders. (5) CKD (chronic kidney disease) stage 3, GFR 30-59 ml/min Is this a current diagnosis for this admission?: Yes Plan: See admitting attending physician orders. (6) Rheumatoid arthritis Qualifiers: Laterality: unspecified laterality Is this a current diagnosis for this admission?: Yes Plan: See admitting attending physician orders. (7) JE (obstructive sleep apnea) Is this a current diagnosis for this admission?: Yes Plan: See admitting attending physician orders. (8) Persistent insomnia Is this a current diagnosis for this admission?: Yes Plan: See admitting attending physician orders. (9) Glaucoma Qualifiers: Glaucoma stage: stage unspecified Is this a current diagnosis for this admission?: Yes Plan: See admitting attending physician orders. - Time Time Spent: 50 to 70 Minutes Medications reviewed and adjusted accordingly: Yes Anticipated discharge: Home with Homehealth Within: Other - Inpatient Certification Based on my medical assessment, after consideration of the patient's comorbidities, presenting symptoms, or acuity I expect that the services needed warrant INPATIENT care.: Yes I certify that my determination is in accordance with my understanding of Medicare's requirements for reasonable and necessary INPATIENT services [42 CFR 412.3e].: Yes Medical Necessity: Need Close Monitoring Due to Risk of Patient Decompensation, Need For Continuous Telemetry Monitoring, Risk of Complication if Not Cared For in Hospital 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
--- NOTE | 2018-03-20 20:19 | EKG REPORT ---
SEVERITY:- ABNORMAL ECG - SINUS RHYTHM FIRST DEGREE AV BLOCK BORDERLINE LEFT AXIS DEVIATION : Confirmed by: Pedro Coelho 20-Mar-2018 20:17:40
[2018-03-20] MEDS: SIMVASTATIN 40 MG TABLET PO SCH (21:52)
[2018-03-20] MEDS: QUETIAPINE FUMARATE 25 MG TABLET PO SCH (21:52)
[2018-03-20] MEDS: TRAZODONE HCL 50 MG TABLET PO SCH (21:52)
[2018-03-20] MEDS: FAMOTIDINE 20 MG TABLET PO SCH (21:53)
[2018-03-20] MEDS ORDERED: (PENDING PHARMACY ID) (Quetiapine Fumarate [Seroquel] 50 MG) PO SCH (22:00)
[2018-03-21 05:02] LABS: ABSOLUTE EOSINOPHILS # (AUTO) 0.3 10^3/uL (0.0-0.6); ABSOLUTE LYMPHOCYTES (AUTO) 2.4 10^3/uL (0.5-4.7); ABSOLUTE NEUT (AUTO) 4.6 10^3/uL (1.7-8.2); BASOPHILS % (AUTO) 0.6 % (0-2); EOSINOPHILS % (AUTO) 3.3 % (0-6); HEMATOCRIT 37.3 % (37.9-51.0); HEMOGLOBIN 12.8 g/dL (13.5-17.0); LYMPHOCYTES % (AUTO) 29.1 % (13-45); MEAN CORPUSCULAR HEMOGLOBIN 31.3 pg (27.0-33.4); MEAN CORPUSCULAR HGB CONC 34.3 g/dL (32.0-36.0); MEAN CORPUSCULAR VOLUME 91 fl (80-97); MONOCYTES % (AUTO) 11.9 % (3-13); PLATELET COUNT 119 10^3/uL (150-450); RED BLOOD COUNT 4.09 10^6/uL (4.35-5.55); RED CELL DISTRIBUTION WIDTH 13.8 % (11.5-14.0); SEGMENTED NEUTROPHILS % (AUTO) 55.1 % (42-78); TOTAL CELLS COUNTED % (AUTO) 100 %; WHITE BLOOD COUNT 8.4 10^3/uL (4.0-10.5)
[2018-03-21 05:23] LABS: ALANINE AMINOTRANSFERASE 25 U/L (21-72); ALBUMIN 3.2 g/dL (3.5-5.0); ALKALINE PHOSPHATASE 52 U/L (38-126); ANION GAP 11 (5-19); ASPARTATE AMINO TRANSFERASE 27 U/L (17-59); BILIRUBIN,DIRECT 0.2 mg/dL (0.0-0.4); BILIRUBIN,TOTAL 0.5 mg/dL (0.2-1.3); BLOOD UREA NITROGEN 36 mg/dL (7-20); CALCIUM 9.9 mg/dL (8.4-10.2); CARBON DIOXIDE 18 mmol/L (22-30); CHLORIDE 112 mmol/L (98-107); CHOLESTEROL 150.38 mg/dL (0-200); CREATINE KINASE 106 U/L (55-170); GLUCOSE 80 mg/dL (75-110); POTASSIUM 4.9 mmol/L (3.6-5.0); SODIUM 140.9 mmol/L (137-145); TOTAL PROTEIN 5.8 g/dL (6.3-8.2); TRIGLYCERIDES 139 mg/dL (<150)
[2018-03-21 05:35] LABS: DIRECT LDL 72 mg/dL (<100)
[2018-03-21 05:36] LABS: CREATINE KINASE MB 0.83 ng/mL (<4.55); TROPONIN I 0.02 ng/mL
[2018-03-21] MEDS ORDERED: (PENDING PHARMACY ID) (Mirabegron [Myrbetriq] 50 MG) PO SCH (10:00)
[2018-03-21] MEDS ORDERED: METOPROLOL SUCCINATE 25 MG TAB.SR.24H PO SCH (10:00)
[2018-03-21] MEDS ORDERED: LISINOPRIL 10 MG TABLET PO SCH (10:00)
--- NOTE | 2018-03-21 10:27 | RADIOLOGY REPORT (SQ) ---
EXAM DESCRIPTION: CAROTID DOPPLER COMPLETED DATE/TIME: 03/21/2018 8:58 am REASON FOR STUDY: Left nonhemorrhagic subacute stroke COMPARISON: None. TECHNIQUE: Grayscale ultrasound, Doppler velocity and spectra, and color Doppler images acquired of the extra-cranial carotid and vertebral arteries. Images stored on PACS. LIMITATIONS: None. FINDINGS: RIGHT CAROTID CCA Velocities: Within normal limits. ICA Velocities Peak systolic 0.59 m/s. End diastolic 0.14 m/s. Proximal ICA/CCA peak systolic ratio 2.0. Spectra normal. No significant plaque. LEFT CAROTID CCA Velocities: Within normal limits. ICA Velocities Peak systolic 0.55 m/s. End diastolic 0.19 m/s. Proximal ICA/CCA peak systolic ratio 2.8. Spectra normal. No significant plaque. VERTEBRAL ARTERIES: Antegrade flow. Normal waveforms. SUBCLAVIAN ARTERIES: Not imaged. OTHER: No other significant finding. IMPRESSION: NO HEMODYNAMICALLY SIGNIFICANT STENOSIS. COMMENT: Quality ID #[id number]: Velocity criteria are extrapolated from the diameter data as defined by t he Society of Radiologists in Ultrasound Consensus Conference. Radiology 2003: 229; 340-346. TECHNICAL DOCUMENTATION: JOB ID: [id number] [employer] All Rights Reserved Reading location - IP/workstation name: [facility]
[2018-03-21] MEDS: CLOPIDOGREL BISULFATE 75 MG TABLET PO SCH (10:40)
[2018-03-21] MEDS: FAMOTIDINE 20 MG TABLET PO SCH ×2 (10:40→21:07)
[2018-03-21] MEDS: LISINOPRIL 10 MG TABLET PO SCH (10:40)
[2018-03-21] MEDS: METOPROLOL SUCCINATE 25 MG TAB.SR.24H PO SCH (10:40)
[2018-03-21] MEDS: HYDROXYCHLOROQUINE SULFATE 200 MG TABLET PO SCH ×2 (10:41→17:42)
[2018-03-21] MEDS: MULTIVITAMIN TABLET PO SCH (10:41)
[2018-03-21] MEDS: ENOXAPARIN SODIUM INJ 40 MG/0.4 ML DISP.SYRIN SUBCUT SCH (10:42)
[2018-03-21] MEDS: TIMOLOL MALEATE 0.5% OPH SOLN 5 ML OU SCH ×2 (10:43→17:42)
[2018-03-21] MEDS: BIMATOPROST 0.01% OPH SOLN 2.5 ML/BOTTLE OU SCH (10:44)
[2018-03-21] MEDS: BRIMONIDINE TARTRATE 0.2% OPH SOLN 5 ML OU SCH ×2 (10:44→17:42)
--- NOTE | 2018-03-21 17:40 | PDOC PROGRESS REPORT ---
Subjective Progress Note for:: 03/21/18 Subjective:: Patient denied any chest pain or difficulty with breathing. He participated in PT session earlier today without significant problem. speech continue to be scattered but improving. Patient continue to demonstrate difficulty finding and putting his words together. No nausea, vomiting, or abdominal pain. No fever or chills. He denied any chest pain, dizziness, or headache. Reason For Visit: LEFT SUBACUTE NONHEMORHAGIC STROKE Physical Exam Vital Signs: Temp Pulse Resp BP Pulse Ox 98.4 F 68 18 95/53 L 96 03/21/18 16:27 03/21/18 16:27 03/21/18 16:27 03/21/18 16:27 03/21/18 16:27 Intake & Output 03/20/18 03/21/18 03/22/18 06:59 06:59 06:59 Intake Total 375 Balance 375 Weight 91.1 kg General appearance: PRESENT: no acute distress, well-developed, well-nourished Head exam: PRESENT: atraumatic, normocephalic Eye exam: PRESENT: conjunctiva pink, EOMI, PERRLA. ABSENT: scleral icterus Ear exam: PRESENT: normal external ear exam Mouth exam: PRESENT: moist Respiratory exam: PRESENT: clear to auscultation heaven Cardiovascular exam: PRESENT: RRR. ABSENT: diastolic murmur, rubs, systolic murmur Vascular exam: PRESENT: normal capillary refill. ABSENT: pallor GI/Abdominal exam: PRESENT: normal bowel sounds, soft. ABSENT: distended, guarding, mass, organolmegaly, rebound, tenderness Extremities exam: ABSENT: pedal edema Musculoskeletal exam: PRESENT: deformity - related to multiple joints involvement with arthritis Neurological exam: PRESENT: alert, awake, oriented to person, oriented to place , oriented to time, oriented to situation, CN II-XII grossly intact, other - improving dysarthria. ABSENT: motor sensory deficit Psychiatric exam: PRESENT: appropriate affect, normal mood. ABSENT: homicidal ideation, suicidal ideation Skin exam: PRESENT: dry, intact, warm. ABSENT: cyanosis, rash Results Laboratory Results: 03/21/18 04:04 03/21/18 04:04 03/21/18 03/21/18 04:04 04:04 WBC 8.4 RBC 4.09 L Hgb 12.8 L Hct 37.3 L MCV 91 MCH 31.3 MCHC 34.3 RDW 13.8 Plt Count 119 L Seg Neutrophils % 55.1 Lymphocytes % 29.1 Monocytes % 11.9 Eosinophils % 3.3 Basophils % 0.6 Absolute Neutrophils 4.6 Absolute Lymphocytes 2.4 Absolute Monocytes 1.0 Absolute Eosinophils 0.3 Absolute Basophils 0.0 Sodium 140.9 Potassium 4.9 Chloride 112 H Carbon Dioxide 18 L Anion Gap 11 BUN 36 H Creatinine 1.98 H Est GFR ( Amer) 39 L Est GFR (Non-Af Amer) 33 L Glucose 80 Calcium 9.9 Total Bilirubin 0.5 AST 27 ALT 25 Alkaline Phosphatase 52 Total Protein 5.8 L Albumin 3.2 L Triglycerides 139 Cholesterol 150.38 LDL Cholesterol Direct 72 VLDL Cholesterol 28.0 HDL Cholesterol 40 03/21/18 03/21/18 04:04 04:04 Creatine Kinase 106 CK-MB (CK-2) 0.83 Troponin I 0.020 Impressions: Head CT 03/20/18 12:42 IMPRESSION: Early subacute moderate-sized nonhemorrhagic infarct left occipital and posterior temporal lobes. EVIDENCE OF ACUTE STROKE: Yes Carotid Doppler Study 03/21/18 08:00 IMPRESSION: NO HEMODYNAMICALLY SIGNIFICANT STENOSIS. Assessment & Plan - Diagnosis (1) Stroke, thrombotic Qualifiers: Precerebral and cerebral artery: unspecified cerebral artery Qualified Code (s): I63.30 - Cerebral infarction due to thrombosis of unspecified cerebral artery Is this a current diagnosis for this admission?: Yes Plan: Continue current medication management. Follow up on echocardiogram findings. I discussed the case with Dr Montero regarding echo reading. (2) Dysarthria due to acute stroke Is this a current diagnosis for this admission?: Yes Plan: Continue current medication and support management. (3) HTN (hypertension) Qualifiers: Hypertension type: essential hypertension Qualified Code(s): I10 - Essential (primary) hypertension Is this a current diagnosis for this admission?: Yes Plan: Monitor blood pressure and adjust medication as needed. (4) HLD (hyperlipidemia) Qualifiers: Hyperlipidemia type: unspecified Qualified Code(s): E78.5 - Hyperlipidemia , unspecified Is this a current diagnosis for this admission?: Yes Plan: See attending physician orders (5) CKD (chronic kidney disease) stage 3, GFR 30-59 ml/min Is this a current diagnosis for this admission?: Yes (6) Rheumatoid arthritis Qualifiers: Laterality: unspecified laterality Is this a current diagnosis for this admission?: Yes (7) JE (obstructive sleep apnea) Is this a current diagnosis for this admission?: Yes (8) Persistent insomnia Is this a current diagnosis for this admission?: Yes (9) Glaucoma Qualifiers: Glaucoma stage: stage unspecified Is this a current diagnosis for this admission?: Yes - Time Time Spent with patient: 25-34 minutes Medications reviewed and adjusted accordingly: Yes Anticipated discharge: Home with Homehealth Within: Other - Inpatient Certification Based on my medical assessment, after consideration of the patient's comorbidities, presenting symptoms, or acuity I expect that the services needed warrant INPATIENT care.: Yes I certify that my determination is in accordance with my understanding of Medicare's requirements for reasonable and necessary INPATIENT services [42 CFR 412.3e].: Yes Medical Necessity: Need Close Monitoring Due to Risk of Patient Decompensation, Need For Continuous Telemetry Monitoring, Risk of Complication if Not Cared For in Hospital 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
--- NOTE | 2018-03-21 19:18 | XCELERA REPORT ---
[address] [address] Transthoracic Echocardiogram Report Name: HENRY VAZQUEZ Age: 82 yrs Gender: Male : 1935 Patient Status: Inpatient Patient Location: [address] [place] [address] Study Date: 03/21/2018 07:48 AM Height: 73 in Weight: 199 lb BSA: 2.1 m2 Procedure: A two-dimensional transthoracic echocardiogram with color flow and Doppler was performed. Study Quality: Poor. The study was technically difficult with many images being suboptimal in quality. Poor Imaging and doppler interogation'. Reason For Study: Left subacute nonhemorrhagic stroke History: CVA. Ordering Physician: YARELIS HARMON Performed By: Dung Steen Interpretation Summary Recommend GLADIS due to suboptimal/poor echo qaulity. The left ventricle is grossly normal size. Probably no LVH.Probably no regional wall motion abnormality.,but cannot be sure.Probably normal LVEF.Not a study to assess clots/thrombus. Doppler measurements suggest impaired left ventricular relaxation, which is associated with grade I/IV or mild diastolic dysfunction The right ventricle is not well visualized secondary to technical limitations Right atrium not well visualized secondary to technical limitations Probably normal LA size. There is aortic sclerosis without aortic stenosis. There is no aortic valve stenosis No aortic regurgitation is present. There is no evidence of mitral valve prolapse. There is no mitral valve stenosis. There is no mitral regurgitation noted. There is no tricuspid stenosis. No tricuspid regurgitation. Unable to calculate RVSP due lack of TR jet. There is no pericardial effusion. Recommend GLADIS due to suboptimal/poor echo qaulity. MMode/2D Measurements & Calculations RVDd: 3.6 cm LVIDd: 4.6 cm FS: 31.1 % Ao root diam: 3.5 cm IVSd: 0.86 cm LVIDs: 3.1 cm EDV(Teich): 95.9 ml Ao root area: 9.8 cm2 LVPWd: 0.88 cm ESV(Teich): 39.4 ml LA dimension: 2.9 cm EF(Teich): 58.9 % LVOT diam: 1.9 cm LVOT area: 2.8 cm2 Doppler Measurements & Calculations MV E max julián: MV P1/2t max julián: Ao V2 max: LV V1 max P.1 cm/sec 70.1 cm/sec 83.3 cm/sec 1.2 mmHg MV A max julián: MV P1/2t: 82.3 msec Ao max PG: LV V1 max: 107.1 cm/sec MVA(P1/2t): 2.7 cm2 2.8 mmHg 55.3 cm/sec MV E/A: 0.64 MV dec slope: NAEEM(V,D): 1.9 cm2 249.4 cm/sec2 PA V2 max: MV P1/2t-pr_phl: 70.0 cm/sec 82.3 msec PA max P.0 mmHg Left Ventricle The left ventricle is grossly normal size. Probably no LVH.Probably no regional wall motion abnormality.,but cannot be sure.Probably normal LVEF.Not a study to assess clots/thrombus. Doppler measurements suggest impaired left ventricular relaxation, which is associated with grade I/IV or mild diastolic dysfunction. Right Ventricle The right ventricle is not well visualized secondary to technical limitations. Atria Right atrium not well visualized secondary to technical limitations. Probably normal LA size. Mitral Valve There is mild to moderate mitral annular calcification. There is no evidence of mitral valve prolapse. There is no mitral valve stenosis. There is no mitral regurgitation noted. Aortic Valve There is no aortic valvular vegetation. There is no aortic valve stenosis. There is aortic sclerosis without aortic stenosis. No aortic regurgitation is present. Tricuspid Valve There is no tricuspid stenosis. No tricuspid regurgitation. Unable to calculate RVSP due lack of TR jet. Pulmonic Valve The pulmonic valve is not well visualized. Great Vessels The aortic root is not well visualized. Effusions There is no pericardial effusion. : YARELIS HARMON > Claudette Maynard
[2018-03-21] MEDS: TRAZODONE HCL 50 MG TABLET PO SCH (21:06)
[2018-03-21] MEDS: SIMVASTATIN 40 MG TABLET PO SCH (21:06)
[2018-03-21] MEDS: QUETIAPINE FUMARATE 25 MG TABLET PO SCH (21:07)
[2018-03-22] MEDS: LISINOPRIL 10 MG TABLET PO SCH (09:22)
[2018-03-22] MEDS: BRIMONIDINE TARTRATE 0.2% OPH SOLN 5 ML OU SCH ×2 (09:30→17:09)
[2018-03-22] MEDS: ENOXAPARIN SODIUM INJ 40 MG/0.4 ML DISP.SYRIN SUBCUT SCH (09:31)
[2018-03-22] MEDS: TIMOLOL MALEATE 0.5% OPH SOLN 5 ML OU SCH ×2 (09:31→17:10)
[2018-03-22] MEDS: CLOPIDOGREL BISULFATE 75 MG TABLET PO SCH (09:32)
[2018-03-22] MEDS: HYDROXYCHLOROQUINE SULFATE 200 MG TABLET PO SCH ×2 (09:32→17:08)
[2018-03-22] MEDS: FAMOTIDINE 20 MG TABLET PO SCH ×2 (09:32→21:10)
[2018-03-22] MEDS: METOPROLOL SUCCINATE 25 MG TAB.SR.24H PO SCH (09:32)
[2018-03-22] MEDS: BIMATOPROST 0.01% OPH SOLN 2.5 ML/BOTTLE OU SCH (09:33)
[2018-03-22] MEDS: MULTIVITAMIN TABLET PO SCH (09:33)
--- NOTE | 2018-03-22 17:07 | PDOC PROGRESS REPORT ---
Subjective Progress Note for:: 03/22/18 Subjective:: Patient was seen at the bedside admitted for the management of embolic stroke Reason For Visit: LEFT SUBACUTE NONHEMORHAGIC STROKE Physical Exam Vital Signs: Temp Pulse Resp BP Pulse Ox 98.4 F 66 18 96/44 L 96 03/22/18 15:03 03/22/18 16:00 03/22/18 16:00 03/22/18 16:00 03/22/18 16:00 Intake & Output 03/21/18 03/22/18 03/23/18 06:59 06:59 06:59 Intake Total 775 425 Balance 775 425 Weight 91.1 kg 89.4 kg General appearance: PRESENT: no acute distress Eye exam: PRESENT: PERRLA Respiratory exam: PRESENT: decreased breath sounds Cardiovascular exam: PRESENT: +S1, +S2 GI/Abdominal exam: PRESENT: soft Neurological exam: PRESENT: alert Results Laboratory Results: 03/21/18 04:04 03/21/18 04:04 03/21/18 03/21/18 04:04 04:04 Creatine Kinase 106 CK-MB (CK-2) 0.83 Troponin I 0.020 Impressions: Head CT 03/20/18 12:42 IMPRESSION: Early subacute moderate-sized nonhemorrhagic infarct left occipital and posterior temporal lobes. EVIDENCE OF ACUTE STROKE: Yes Carotid Doppler Study 03/21/18 08:00 IMPRESSION: NO HEMODYNAMICALLY SIGNIFICANT STENOSIS. Assessment & Plan - Diagnosis (1) Stroke, thrombotic Qualifiers: Precerebral and cerebral artery: unspecified cerebral artery Qualified Code (s): I63.30 - Cerebral infarction due to thrombosis of unspecified cerebral artery Is this a current diagnosis for this admission?: Yes Plan: Continue treatment (2) Dysarthria due to acute stroke Is this a current diagnosis for this admission?: Yes (3) JE (obstructive sleep apnea) Is this a current diagnosis for this admission?: Yes
[2018-03-22] MEDS: [UNRECOGNIZED DRUG - OTHER] PO SCH (21:10)
[2018-03-22] MEDS: QUETIAPINE FUMARATE 25 MG TABLET PO SCH (21:10)
[2018-03-22] MEDS: TRAZODONE HCL 50 MG TABLET PO SCH (21:10)
[2018-03-22] MEDS: SIMVASTATIN 40 MG TABLET PO SCH (21:10)
[2018-03-23] MEDS: BRIMONIDINE TARTRATE 0.2% OPH SOLN 5 ML OU SCH ×2 (09:47→17:10)
[2018-03-23] MEDS: BIMATOPROST 0.01% OPH SOLN 2.5 ML/BOTTLE OU SCH (09:48)
[2018-03-23] MEDS: TIMOLOL MALEATE 0.5% OPH SOLN 5 ML OU SCH ×2 (09:48→17:10)
[2018-03-23] MEDS: ENOXAPARIN SODIUM INJ 40 MG/0.4 ML DISP.SYRIN SUBCUT SCH (09:49)
[2018-03-23] MEDS: METOPROLOL SUCCINATE 25 MG TAB.SR.24H PO SCH (09:49)
[2018-03-23] MEDS: MULTIVITAMIN TABLET PO SCH (09:50)
[2018-03-23] MEDS: FAMOTIDINE 20 MG TABLET PO SCH ×2 (09:50→21:03)
[2018-03-23] MEDS: CLOPIDOGREL BISULFATE 75 MG TABLET PO SCH (09:50)
[2018-03-23] MEDS: HYDROXYCHLOROQUINE SULFATE 200 MG TABLET PO SCH ×2 (09:50→17:10)
[2018-03-23] MEDS: LISINOPRIL 10 MG TABLET PO SCH (09:50)
--- NOTE | 2018-03-23 16:47 | PDOC PROGRESS REPORT ---
Subjective Progress Note for:: 03/23/18 Subjective:: There was some of the bedside, he has CVA, MRI of the brain was done today Reason For Visit: LEFT SUBACUTE NONHEMORHAGIC STROKE Physical Exam Vital Signs: Temp Pulse Resp BP Pulse Ox 98.3 F 58 L 18 116/55 L 100 03/23/18 16:38 03/23/18 16:38 03/23/18 16:38 03/23/18 16:38 03/23/18 16:38 Intake & Output 03/22/18 03/23/18 03/24/18 06:59 06:59 06:59 Intake Total 775 1100 750 Output Total 300 Balance 775 800 750 Weight 89.4 kg 89 kg General appearance: PRESENT: no acute distress Eye exam: PRESENT: PERRLA Respiratory exam: PRESENT: clear to auscultation heaven Cardiovascular exam: PRESENT: +S1, +S2 GI/Abdominal exam: PRESENT: soft Neurological exam: PRESENT: alert Results Laboratory Results: 03/21/18 04:04 03/21/18 04:04 03/21/18 03/21/18 04:04 04:04 Creatine Kinase 106 CK-MB (CK-2) 0.83 Troponin I 0.020 Impressions: Head CT 03/20/18 12:42 IMPRESSION: Early subacute moderate-sized nonhemorrhagic infarct left occipital and posterior temporal lobes. EVIDENCE OF ACUTE STROKE: Yes Carotid Doppler Study 03/21/18 08:00 IMPRESSION: NO HEMODYNAMICALLY SIGNIFICANT STENOSIS. Assessment & Plan - Diagnosis (1) Stroke, thrombotic Qualifiers: Precerebral and cerebral artery: unspecified cerebral artery Qualified Code (s): I63.30 - Cerebral infarction due to thrombosis of unspecified cerebral artery Is this a current diagnosis for this admission?: Yes (2) Dysarthria due to acute stroke Is this a current diagnosis for this admission?: Yes (3) JE (obstructive sleep apnea) Is this a current diagnosis for this admission?: Yes
--- NOTE | 2018-03-23 17:17 | RADIOLOGY REPORT (SQ) ---
EXAM DESCRIPTION: MRI HEAD WITHOUT COMPLETED DATE/TIME: 03/23/2018 4:27 pm REASON FOR STUDY: cva COMPARISON: CT brain 03/20/2018 TECHNIQUE: Multiplanar imaging includes non-contrasted T1, T2, FLAIR, and diffusion with ADC map seq uences. Images stored on PACS. LIMITATIONS: None. FINDINGS: ANATOMY: No developmental anomalies. Normal vascular flow voids. Pituitary fossa normal. CSF SPACES: Normal in size and contour. No hemorrhage. CEREBRUM: Moderate-sized early subacute infarct in the left posterior temporal lobe, nonhemorrhagic. Mild local mass effect with sulcal effacement. Infarct is positive on diffusion. Remainder of the cerebral hemispheres are otherwise unremarkable. POSTERIOR FOSSA: No signal alteration. No hemorrhage. No edema, masses or mass effect. Internal saundra tory canals, cerebello-pontine angles, mastoids normal. DIFFUSION IMAGING: Positive for moderate-sized early subacute infarct left posterior temporal lobe ORBITS: No masses. Globes post bilateral cataract surgery. PARANASAL SINUSES: No fluid levels. Mucosa normal. OTHER: No other significant finding. IMPRESSION: Moderate-sized nonhemorrhagic early subacute infarct left posterior temporal lobe EVIDENCE OF ACUTE STROKE: Yes, early subacute 1 week to 1 month old TECHNICAL DOCUMENTATION: JOB ID: [id number] [employer]- All Rights Reserved Reading location - IP/workstation name: [email or web address]
[2018-03-23] MEDS: SIMVASTATIN 40 MG TABLET PO SCH (21:03)
[2018-03-23] MEDS: TRAZODONE HCL 50 MG TABLET PO SCH (21:03)
[2018-03-23] MEDS: QUETIAPINE FUMARATE 25 MG TABLET PO SCH (21:03)
[2018-03-23] MEDS: [UNRECOGNIZED DRUG - OTHER] PO SCH (21:04)
[2018-03-24] MEDS: TRAMADOL HCL 50 MG TABLET PO PRN ×2 (00:03→20:11)
[2018-03-24] MEDS: BRIMONIDINE TARTRATE 0.2% OPH SOLN 5 ML OU SCH ×2 (09:20→17:38)
[2018-03-24] MEDS: BIMATOPROST 0.01% OPH SOLN 2.5 ML/BOTTLE OU SCH (09:21)
[2018-03-24] MEDS: CLOPIDOGREL BISULFATE 75 MG TABLET PO SCH (09:21)
[2018-03-24] MEDS: FAMOTIDINE 20 MG TABLET PO SCH ×2 (09:21→22:00)
[2018-03-24] MEDS: LISINOPRIL 10 MG TABLET PO SCH (09:22)
[2018-03-24] MEDS: MULTIVITAMIN TABLET PO SCH (09:23)
[2018-03-24] MEDS: HYDROXYCHLOROQUINE SULFATE 200 MG TABLET PO SCH ×2 (09:24→17:37)
[2018-03-24] MEDS: TIMOLOL MALEATE 0.5% OPH SOLN 5 ML OU SCH ×2 (09:25→17:38)
[2018-03-24] MEDS: METOPROLOL SUCCINATE 25 MG TAB.SR.24H PO SCH (09:26)
[2018-03-24] MEDS: ENOXAPARIN SODIUM INJ 40 MG/0.4 ML DISP.SYRIN SUBCUT SCH (09:27)
--- NOTE | 2018-03-24 19:31 | PDOC PROGRESS REPORT ---
Subjective Progress Note for:: 03/24/18 Subjective:: Patient is participating in speech pathology rehabilitation program. He denied any chest pain, palpitation, nausea, vomiting or abdominal pain. Breathing is normal. Remain afebrile. his brain MRI did confirm moderate-sized nonhemorrhagic early subacute infarct in left posterior temporal lobe region. Reason For Visit: LEFT SUBACUTE NONHEMORHAGIC STROKE Physical Exam Vital Signs: Temp Pulse Resp BP Pulse Ox 98.4 F 61 20 113/68 95 03/24/18 15:06 03/24/18 16:00 03/24/18 16:00 03/24/18 16:00 03/24/18 16:00 Intake & Output 03/23/18 03/24/18 03/25/18 06:59 06:59 06:59 Intake Total 1100 1202 594 Output Total 300 Balance 800 1202 594 Weight 89 kg 90.4 kg Physical Exam: General appearance: PRESENT: no acute distress, well-developed, well-nourished Head exam: PRESENT: atraumatic, normocephalic Eye exam: PRESENT: conjunctiva pink, EOMI, PERRLA. ABSENT: scleral icterus Ear exam: PRESENT: normal external ear exam Mouth exam: PRESENT: moist Respiratory exam: PRESENT: clear to auscultation heaven Cardiovascular exam: PRESENT: RRR. ABSENT: diastolic murmur, rubs, systolic murmur Vascular exam: PRESENT: normal capillary refill. ABSENT: pallor GI/Abdominal exam: PRESENT: normal bowel sounds, soft. ABSENT: distended, guarding, mass, organomegaly, rebound, tenderness Extremities exam: ABSENT: pedal edema Musculoskeletal exam: PRESENT: deformity - related to multiple joints involvement with arthritis Neurological exam: PRESENT: alert, awake, oriented to person, oriented to place , oriented to time, oriented to situation, CN II-XII grossly intact, other - improving dysarthria. ABSENT: motor sensory deficit Psychiatric exam: PRESENT: appropriate affect, normal mood. ABSENT: homicidal ideation, suicidal ideation Skin exam: PRESENT: dry, intact, warm. ABSENT: cyanosis, rash Results Laboratory Results: 03/21/18 04:04 03/21/18 04:04 03/21/18 03/21/18 04:04 04:04 Creatine Kinase 106 CK-MB (CK-2) 0.83 Troponin I 0.020 Impressions: Head CT 03/20/18 12:42 IMPRESSION: Early subacute moderate-sized nonhemorrhagic infarct left occipital and posterior temporal lobes. EVIDENCE OF ACUTE STROKE: Yes Carotid Doppler Study 03/21/18 08:00 IMPRESSION: NO HEMODYNAMICALLY SIGNIFICANT STENOSIS. Head MRI 03/23/18 00:00 IMPRESSION: Moderate-sized nonhemorrhagic early subacute infarct left posterior temporal lobe EVIDENCE OF ACUTE STROKE: Yes, early subacute 1 week to 1 month old Assessment & Plan - Diagnosis (1) Stroke, thrombotic Qualifiers: Precerebral and cerebral artery: unspecified cerebral artery Qualified Code (s): I63.30 - Cerebral infarction due to thrombosis of unspecified cerebral artery Is this a current diagnosis for this admission?: Yes (2) Dysarthria due to acute stroke Is this a current diagnosis for this admission?: Yes (3) HTN (hypertension) Qualifiers: Hypertension type: essential hypertension Qualified Code(s): I10 - Essential (primary) hypertension Is this a current diagnosis for this admission?: Yes (4) HLD (hyperlipidemia) Qualifiers: Hyperlipidemia type: unspecified Qualified Code(s): E78.5 - Hyperlipidemia , unspecified Is this a current diagnosis for this admission?: Yes (5) CKD (chronic kidney disease) stage 3, GFR 30-59 ml/min Is this a current diagnosis for this admission?: Yes (6) Rheumatoid arthritis Qualifiers: Laterality: unspecified laterality Is this a current diagnosis for this admission?: Yes (7) JE (obstructive sleep apnea) Is this a current diagnosis for this admission?: Yes (8) Persistent insomnia Is this a current diagnosis for this admission?: Yes (9) Glaucoma Qualifiers: Glaucoma stage: stage unspecified Is this a current diagnosis for this admission?: Yes - Time Time Spent with patient: 25-34 minutes Medications reviewed and adjusted accordingly: Yes Anticipated discharge: Home with Homehealth Within: within 24 hours - Inpatient Certification Based on my medical assessment, after consideration of the patient's comorbidities, presenting symptoms, or acuity I expect that the services needed warrant INPATIENT care.: Yes I certify that my determination is in accordance with my understanding of Medicare's requirements for reasonable and necessary INPATIENT services [42 CFR 412.3e].: Yes Medical Necessity: Need Close Monitoring Due to Risk of Patient Decompensation, Need For Continuous Telemetry Monitoring, Risk of Complication if Not Cared For in Hospital Post Hospital Care: D/C Systematic Theology Professor Documentation - Plan Summary Plan Summary: Possible discharge home in AM with RACING MANAGER service for home safety check and outpatient rehabilitation.
[2018-03-24] MEDS: QUETIAPINE FUMARATE 25 MG TABLET PO SCH (22:00)
[2018-03-24] MEDS: TRAZODONE HCL 50 MG TABLET PO SCH (22:00)
[2018-03-24] MEDS: SIMVASTATIN 40 MG TABLET PO SCH (22:00)
[2018-03-24] MEDS: [UNRECOGNIZED DRUG - OTHER] PO SCH (22:31)
--- NOTE | 2018-03-25 08:21 | PDOC DISCHARGE SUMMARY ---
General - Admit/Disc Date/PCP Admission Date/Primary Care Provider: 03/20/18 14:29 YARELIS EDEN Discharge Date: 03/25/18 - Discharge Diagnosis (1) Stroke, thrombotic Is this a current diagnosis for this admission?: Yes (2) Dysarthria due to acute stroke Is this a current diagnosis for this admission?: Yes (3) HTN (hypertension) Is this a current diagnosis for this admission?: Yes (4) HLD (hyperlipidemia) Is this a current diagnosis for this admission?: Yes (5) CKD (chronic kidney disease) stage 3, GFR 30-59 ml/min Is this a current diagnosis for this admission?: Yes (6) Rheumatoid arthritis Is this a current diagnosis for this admission?: Yes (7) JE (obstructive sleep apnea) Is this a current diagnosis for this admission?: Yes (8) Persistent insomnia Is this a current diagnosis for this admission?: Yes (9) Glaucoma Is this a current diagnosis for this admission?: Yes - Additional Information Resuscitation Status: Full Code Discharge Diet: Cardiac Discharge Activity: Activity As Tolerated, Slowly Increase Activity Prescriptions: Clopidogrel Bisulfate [Plavix 75 mg Tablet] 75 mg PO DAILY #30 tablet Rosuvastatin Calcium 40 mg PO DAILY #30 tablet Home Medications: Bimatoprost [Lumigan 0.01% Oph Soln 2.5 ml/Bottle] 1 drop OU DAILY 03/20/18 Brimonidine Tartrate/Timolol [Combigan 0.2%-0.5% Eye Drops] 1 drop OU BID Calcifediol [Rayaldee] 30 mcg PO QHS 03/20/18 Hydroxychloroquine Sulfate [Plaquenil 200 mg Tablet] 200 mg PO BID 03/20/18 Lisinopril [Prinivil 10 mg Tablet] 10 mg PO DAILY 03/20/18 Metoprolol Succinate [Toprol Xl 25 mg Tab.sr] 25 mg PO DAILY 03/20/18 Mirabegron [Myrbetriq] 50 mg PO DAILY 03/20/18 Multivitamin [Daily Multiple Vitamin] 1 tab PO DAILY 03/20/18 Quetiapine Fumarate [Seroquel] 50 mg PO QHS 03/20/18 Tramadol HCl [Ultram 50 mg Tablet] 50 mg PO BIDP PRN 03/20/18 Trazodone HCl [Desyrel 50 mg Tablet] 50 mg PO QHS 03/20/18 Clopidogrel Bisulfate [Plavix 75 mg Tablet] 75 mg PO DAILY #30 tablet 03/25/18 Rosuvastatin Calcium 40 mg PO DAILY #30 tablet 03/25/18 History of Present Illness Patient complains of: Confusion History of Present Illness: HENRY VAZQUEZ is a 82 year old male patient known to my practice who presented to the ED with complain of weakness confusion. Patient reported that he had sleep study completed yesterday at local sleep study facility. He subsequently went on his usual daily activities but developed some discomfort around the site of electrode placement for his sleep study. [facility] but noted that his headache discomfort persist and at about the time of leaving the facility he was not able to speak. He went back home, took some Tylenol and lay down. reported that his speech thereafter have been gibberish in character and patient demonstrated difficulty with finding his words. He denied any palpitation, chest pain, dizziness, fever or chills.. No nausea, vomiting, abdominal pain, diarrhea, flank pain, dysuria, hematuria or difficulty with voiding. His initial evaluation in the ED was remarkable for speech pattern abnormality and CT scan of head did revealed subacute occipital and posterior left temporal lobe nonhemorrhagic infarct. He was advised hospitalization for further evaluation and management. His morbidities include Hypertension, Hyperlipidemia, Rheumatoid Arthritis, obstructive sleep apnea, persistent insomnia, chronic kidney disease stage 3, and glaucoma. He denied cigarette smoking, alcohol abuse or illicit drug usage. Hospital Course Hospital Course: Patient was admitted as a case of subacute nonhemorrhagic posterior occipital and left temporal lobe infarct. He was outside the standard time line for thrombolytic therapy. He was managed with full dose aspirin in the ED and started on Plavix therapy. He participated in speech pathologist session as well as physical therapy rehabilitation sessions. His cardiovascular system evaluation did not revealed source of possible embolic origin. His echocardiogram was reported as poor in quality technically with suggestion of GLADIS for further evaluation. Patient will be discharge d home today on Plavix antiplalet therapy. Arrangement will be made during office follow up for cardiology referral regarding possible GLADIS. Patient will follow up in the office as instructed upon discharge. Physical Exam Vital Signs: Temp Pulse Resp BP Pulse Ox 98.5 F 65 16 122/57 L 98 03/25/18 07:32 03/25/18 07:32 03/25/18 07:32 03/25/18 07:32 03/25/18 07:32 Intake & Output 03/24/18 03/25/18 03/26/18 06:59 06:59 06:59 Intake Total 1202 1294 Balance 1202 1294 Weight 90.4 kg 89.2 kg Physical Exam: General appearance: PRESENT: no acute distress, well-developed, well-nourished Head exam: PRESENT: atraumatic, normocephalic Eye exam: PRESENT: conjunctiva pink, EOMI, PERRLA. ABSENT: scleral icterus Ear exam: PRESENT: normal external ear exam Mouth exam: PRESENT: moist Respiratory exam: PRESENT: clear to auscultation heaven Cardiovascular exam: PRESENT: RRR. ABSENT: diastolic murmur, rubs, systolic murmur Vascular exam: PRESENT: normal capillary refill. ABSENT: pallor GI/Abdominal exam: PRESENT: normal bowel sounds, soft. ABSENT: distended, guarding, mass, organomegaly, rebound, tenderness Extremities exam: ABSENT: pedal edema Musculoskeletal exam: PRESENT: deformity - related to multiple joints involvement with arthritis Neurological exam: PRESENT: alert, awake, oriented to person, oriented to place , oriented to time, oriented to situation, CN II-XII grossly intact, other - improving dysarthria. ABSENT: motor sensory deficit Psychiatric exam: PRESENT: appropriate affect, normal mood. ABSENT: homicidal ideation, suicidal ideation Skin exam: PRESENT: dry, intact, warm. ABSENT: cyanosis, rash Results Laboratory Results: 03/21/18 04:04 03/21/18 04:04 03/21/18 03/21/18 04:04 04:04 Creatine Kinase 106 CK-MB (CK-2) 0.83 Troponin I 0.020 Impressions: Head CT 03/20/18 12:42 IMPRESSION: Early subacute moderate-sized nonhemorrhagic infarct left occipital and posterior temporal lobes. EVIDENCE OF ACUTE STROKE: Yes Carotid Doppler Study 03/21/18 08:00 IMPRESSION: NO HEMODYNAMICALLY SIGNIFICANT STENOSIS. Head MRI 03/23/18 00:00 IMPRESSION: Moderate-sized nonhemorrhagic early subacute infarct left posterior temporal lobe EVIDENCE OF ACUTE STROKE: Yes, early subacute 1 week to 1 month old Qualifiers - * PATIENT BEING DISCHARGED WITH ANY OF THE FOLLOWING DIAGNOSIS: Stroke Stroke Pt being discharged on Anti-thrombolytic therapy?: Yes Stroke Pt being discharged on Anti-coagulation therapy?: Yes Stroke Pt being discharged on Statins?: Yes Plan Discharge Plan: Discharge home today with home health agency services. Follow up in the office as instructed upon discharge.
[2018-03-25] MEDS: BIMATOPROST 0.01% OPH SOLN 2.5 ML/BOTTLE OU SCH (09:49)
[2018-03-25] MEDS: TIMOLOL MALEATE 0.5% OPH SOLN 5 ML OU SCH (09:49)
[2018-03-25] MEDS: HYDROXYCHLOROQUINE SULFATE 200 MG TABLET PO SCH (09:49)
[2018-03-25] MEDS: BRIMONIDINE TARTRATE 0.2% OPH SOLN 5 ML OU SCH (09:49)
[2018-03-25] MEDS: FAMOTIDINE 20 MG TABLET PO SCH (09:50)
[2018-03-25] MEDS: METOPROLOL SUCCINATE 25 MG TAB.SR.24H PO SCH (09:50)
[2018-03-25] MEDS: CLOPIDOGREL BISULFATE 75 MG TABLET PO SCH (09:50)
[2018-03-25] MEDS: MULTIVITAMIN TABLET PO SCH (09:50)
[2018-03-25] MEDS: LISINOPRIL 10 MG TABLET PO SCH (09:51)
[2018-03-25] MEDS: ENOXAPARIN SODIUM INJ 40 MG/0.4 ML DISP.SYRIN SUBCUT SCH (09:53)
[2018-03-25 12:54] VITALS: BP 131/59
--- NOTE | 2018-04-07 17:11 | PDOC PROGRESS REPORT ---
Subjective Subjective: Patient is an 82-year-old male with history significant for hypertension, hyperlipidemia, chronic kidney disease, glaucoma, insomnia and sleep apnea. Patient was admitted to [facility] on March 20 and discharged on March 25 after having a subacute occipital and posterior left temporal lobe infarct. Patient did have some dysarthria and trouble finding his words. Patient was started on Plavix and advised to continue his daily aspirin. Rosuvastatin was increased from 10 mg to 40 mg daily. The patient was evaluated by rehabilitation services and home health nursing was set up. Patient does have follow-up planned with speech therapy tomorrow for an intake assessment. Patient was seen in the stroke clinic as part of the [facility] study and was accompanied by his of 54 years. Patient continues to have some dysarthria and trouble finding his words. Patient denies any difficulty with chewing, swallowing or pocketing food. Patient has been eating a normal regular diet. Patient does ambulate independently although admits to using a cane since having his CVA due to concerns about balance. Patient does not drive as he states that his license had already been revoked per the DMV. Patient denies any falls in the past 3 months and no falls since his CVA. Patient lives at home with his . Patient does have a neighbor who does assist with activities such as cleaning his gutters. Patient denies any bowel or bladder issues. Patient does report some feelings of depression that he attributes to feeling down whenever his is upset and cusses and he cannot say anything in response so he just says "okay". Patient's PHQ 9 score was 12. Patient was seen by his primary care provider Dr. Russell during his admission and has a follow-up appointment next week with his doctor. Patient is also scheduled to see his pattern technician as well as neurologist next week. Allergies/Adverse Reactions: No Known Allergies Allergy (Verified 03/20/18 12:31) Home Medications: Bimatoprost [Lumigan 0.01% Oph Soln 2.5 ml/Bottle] 1 drop OU DAILY 03/20/18 Brimonidine Tartrate/Timolol [Combigan 0.2%-0.5% Eye Drops] 1 drop OU BID Calcifediol [Rayaldee] 30 mcg PO QHS 03/20/18 Hydroxychloroquine Sulfate [Plaquenil 200 mg Tablet] 200 mg PO BID 03/20/18 Lisinopril [Prinivil 10 mg Tablet] 10 mg PO DAILY 03/20/18 Metoprolol Succinate [Toprol Xl 25 mg Tab.sr] 25 mg PO DAILY 03/20/18 Mirabegron [Myrbetriq] 50 mg PO DAILY 03/20/18 Multivitamin [Daily Multiple Vitamin] 1 tab PO DAILY 03/20/18 Quetiapine Fumarate [Seroquel] 50 mg PO QHS 03/20/18 Tramadol HCl [Ultram 50 mg Tablet] 50 mg PO BIDP PRN 03/20/18 Trazodone HCl [Desyrel 50 mg Tablet] 50 mg PO QHS 03/20/18 Physical Exam General appearance: PRESENT: no acute distress, cooperative, hard of hearing, well-nourished Head exam: PRESENT: atraumatic Eye exam: PRESENT: conjunctiva pink, EOMI Ear exam: PRESENT: normal external ear exam Mouth exam: PRESENT: moist Neck exam: PRESENT: full ROM. ABSENT: carotid bruit, JVD, lymphadenopathy, tenderness Respiratory exam: PRESENT: clear to auscultation heaven, unlabored. ABSENT: decreased breath sounds, wheezes Cardiovascular exam: PRESENT: RRR, +S1, +S2 Pulses: PRESENT: normal carotid pulses, normal radial pulses Vascular exam: PRESENT: normal capillary refill GI/Abdominal exam: PRESENT: normal bowel sounds, soft. ABSENT: diminished bowel sounds, tenderness Musculoskeletal exam: PRESENT: ambulatory, full ROM, normal inspection. ABSENT : tenderness Psychiatric exam: PRESENT: normal mood Skin exam: PRESENT: dry, warm - Extreminites General upper extremity: Normal inspection, Nontender, Normal ROM, Normal strength General lower extremity: Normal inspection, Nontender, Normal ROM, Normal strength - Neurological Neuro grossly intact: Yes Cognition: Normal Orientation: AAOx4 Kiya Coma Scale Eye Opening: Spontaneous Kiya Coma Scale Verbal: Oriented Brandon Coma Scale Motor: Obeys Commands Kiya Coma Scale Total: 15 Cranial nerves: Normal. negative: Facial palsy Cerebellar coordination: Normal, Heel-lópez, Finger-nose rhombey, Rapid alt. movements Motor strength normal: LUE, RUE, LLE, RLE Additional motor exam normals: Equal patient relations liaison. negative: Involuntary movements, Pronator drift, Weakness Reflex grade: 0=absent. 1=hypoactive. 2=normal. 3=increased. 4=clonus Note: Neurologic: Mental status: the patient is alert and oriented to person, place, and time with occasional dysarthria. PERRL. Extraocular movements are intact without ptosis. facial sensation is intact bilaterally to light touch stimuli. Facial muscle strength is equal. Patient able to raise eyebrows normally. Hearing is normal to casual conversation. Palate and uvula elevate symmetrically , with intact gag reflex. Voice is normal. Shoulder shrug strong bilaterally. Tongue protrudes midline and moves symmetrically. Plantar reflex is downward bilaterally. Sensation: sensation to light touchis normal. Motor: Good muscle tone. Strength is 5/5 bilaterally to upper and lower extremities, patient relations liaison strength equal bilaterally. No evidence of rigidity or spasticity upon exam. No tremor noted. Cerebellar: steady gait with use of cane. Patient is able to stand unassisted from a sitting position Results - x laboratory: 03/21/18 03/21/18 03/21/18 04:04 04:04 04:04 WBC 8.4 RBC 4.09 L Hgb 12.8 L Hct 37.3 L MCV 91 MCH 31.3 MCHC 34.3 RDW 13.8 Plt Count 119 L Seg Neutrophils % 55.1 Lymphocytes % 29.1 Monocytes % 11.9 Eosinophils % 3.3 Basophils % 0.6 Absolute Neutrophils 4.6 Absolute Lymphocytes 2.4 Absolute Monocytes 1.0 Absolute Eosinophils 0.3 Absolute Basophils 0.0 Sodium 140.9 Potassium 4.9 Chloride 112 H Carbon Dioxide 18 L Anion Gap 11 BUN 36 H Creatinine 1.98 H Est GFR ( Amer) 39 L Est GFR (Non-Af Amer) 33 L Glucose 80 Calcium 9.9 Total Bilirubin 0.5 Direct Bilirubin 0.2 Neonat Total Bilirubin Not Reportable Neonat Direct Bilirubin Not Reportable Neonat Indirect Bili Not Reportable AST 27 ALT 25 Alkaline Phosphatase 52 Creatine Kinase 106 CK-MB (CK-2) 0.83 Troponin I 0.020 Total Protein 5.8 L Albumin 3.2 L Triglycerides 139 Cholesterol 150.38 LDL Cholesterol Direct 72 VLDL Cholesterol 28.0 HDL Cholesterol 40 Radiology: Carotid Doppler Study 03/21/18 08:00 IMPRESSION: NO HEMODYNAMICALLY SIGNIFICANT STENOSIS. Head MRI 03/23/18 00:00 IMPRESSION: Moderate-sized nonhemorrhagic early subacute infarct left posterior temporal lobe EVIDENCE OF ACUTE STROKE: Yes, early subacute 1 week to 1 month old Assessment and Plan - Plan Plan: Stroke Clinic Visit Todays Visit Date: 04/07/2018 Hospital Discharge Date: 03/25/2018 Follow Up Phone Call Date: 03/26/2018 Reason for Todays Visit: Hospital Follow Up after CVA Risk Stratification Labs: Hgb A1C -N/A , Cholesterol 150 , Triglycerides 139 ,HDL 40, LDL 72 . Current Status: Patient was seen today for stroke clinic follow-up as part of the [facility] Study. Todays Post Stroke Functional Assessment was generated with an electronic eCare plan and the abbreviated results are listed below: Stroke Risk Factor Assessment: Stroke risk factor include: hypertension, hyperlipidemia, inactivity, alcohol use Today, BP 114/72, HR 66. Patient is on rosuvastatin 40 mg daily for cholesterol: denies missing any doses Patient reports being active for at least 10-20 minutes each day, at least 3 days a week Patient is a buttermaker continuous churn wine drinker. Patient reports cutting back on the amount of alcohol he drinks to 6 ounces daily. Medication list was reconciled Patient sees Dr Russell for primary care, and was seen during admission. Patient has an upcoming appointment with with primary care provider, nephrology with Dr. Hyatt next week, and neurology Dr. Corona next week. Additional Stroke Risk Factors: Stroke Complications Assessment: The patient denies any signs or symptoms of UTI, pneumonia, dehydration, bleeding (hematuria, melena), dysphagia, cognitive deficits, tightening of the extremities suggestive of spasticity, or depression. Patient denies any safety concerns (mismanaged medications, falls, or needing 24 hour supervision). The patient has had no ER visits since leaving [facility]. Subjective Assessment: The patient is independent with ADLS. And has assistance with some of his IADLs , that are performed by his . Patient does not drive. Patient live with his . Caregiver strain was verbally assessed, and his did report increase stress at home. PMH: HTN, HLD, osteoarthritis, chronic kidney disease, insomnia, sleep apnea PSH: Cholecystectomy, bowel resection, coronary stents Allergies: Morphine Social: Wine drinker, 6 ounces a day Modified Madai scale: 0 Plan Stroke Risk Factor Management: 1. Continue ASA 81 mg and Plavix 75 mg daily for stroke prevention. -watch for signs of abnormal bleeding/bruising -follow up with neurology as planned 2. Blood pressure: Goal BP <140/90 - blood pressure today -take blood pressure measurements daily and keep a log for PCP to review -Blood pressure education was provided 3. Cholesterol: LDL 72. Goal LDL <70, goal HDL>50. -extensive cholesterol education was provided including therapeutic lifestyle changes and education -continue high intensity statin therapy to maximize risk factor reduction- recommended rechecking fasting lipid panel in 6-8 weeks to ensure efficacy. 4. Rehabilitation: Maximize physical activity for full rehabilitation. -when you are more fatigued, stressed, or have an infection your symptoms may be more apparent -discussed fall risk factors and risk reduction strategies -physical activity as tolerated to a goal of 30 minutes exercise at least 5 days a week. -encouraged brain healthy activities such as puzzles, word searches. 5. Advance directives: -counselling was provided regarding advance directives -referred to PCP/erisa attorney for creation of documents 7. alcohol Use: -pt encouraged to follow his pattern technician recommendation of no more than 6 ounces daily We discussed signs and symptoms of stroke and when to call 911 such as any new numbness, weakness, dyarthria, dysphagia, aphasia, dizziness, diplopia, vision loss, or balance problems.
== END 2018-03-25 13:17 | disposition home health service (06) | DRG 66 ==
LOC: ER 12:29 → EH 14:29 → 3N 16:00 → 3W 03-22 18:31
PROVIDERS: ADMIT Internal Medicine Geriatric Medicine; ATTEND Internal Medicine Geriatric Medicine
DX: I63.39 Cerebral infarction due to thrombosis of other cerebral artery (principal); R47.1 Dysarthria and anarthria; E78.5 Hyperlipidemia, unspecified; I12.9 Hypertensive chronic kidney disease with stage 1 through stage 4 chronic kidney disease, or unspecified chronic kidney disease; N18.3 Chronic kidney disease, stage 3 (moderate); M06.9 Rheumatoid arthritis, unspecified; G47.33 Obstructive sleep apnea (adult) (pediatric); G47.00 Insomnia, unspecified; H40.9 Unspecified glaucoma; Z90.49 Acquired absence of other specified parts of digestive tract; Z79.82 Long term (current) use of aspirin; Z79.899 Other long term (current) drug therapy
CPT/HCPCS: 36415; 70450; 70551; 80053; 80061; 81001; 82550; 82553; 83605; 83735; 84484; 85025; 87040; 93005; 93010; 93306; 93880; 99291; G8978-GP; G8979-GP; G8980-GP; G8990-GO; G8991-GO; G9162-GN; G9163-GN; J1650; J3490

== ENCOUNTER → 2018-04-03 | Outpatient (CLI) | payer MEDICARE ==
[2018-04-03 13:48] LABS: ANION GAP 9 (5-19); BLOOD UREA NITROGEN 36 mg/dL (7-20); CALCIUM 10.3 mg/dL (8.4-10.2); CARBON DIOXIDE 23 mmol/L (22-30); CHLORIDE 110 mmol/L (98-107); GLUCOSE 83 mg/dL (75-110); POTASSIUM 5.4 mmol/L (3.6-5.0); SODIUM 141.9 mmol/L (137-145)
[2018-04-04 12:38] LABS: CREATININE URINE 98.8 mg/dL (Not Estab.); MICROALBUMIN URINE 4.1 ug/mL (Not Estab.)
== END ==
LOC: OD 12:26
PROVIDERS: ATTEND Internal Medicine Nephrology
DX: N18.3 Chronic kidney disease, stage 3 (moderate) (principal); R80.9 Proteinuria, unspecified; N25.81 Secondary hyperparathyroidism of renal origin
CPT/HCPCS: 36415; 80048; 82043; 82306; 82570; 83970

== ENCOUNTER → 2018-07-15 | Outpatient (CLI) | payer MEDICARE ==
[2018-07-15 11:46] LABS: ABSOLUTE EOSINOPHILS # (AUTO) 0.3 10^3/uL (0.0-0.6); ABSOLUTE LYMPHOCYTES (AUTO) 2.2 10^3/uL (0.5-4.7); ABSOLUTE MONOCYTES (AUTO) 0.7 10^3/uL (0.1-1.4); ABSOLUTE NEUT (AUTO) 2.6 10^3/uL (1.7-8.2); BASOPHILS % (AUTO) 0.6 % (0-2); EOSINOPHILS % (AUTO) 5.6 % (0-6); HEMATOCRIT 37.5 % (37.9-51.0); HEMOGLOBIN 12.6 g/dL (13.5-17.0); LYMPHOCYTES % (AUTO) 37.9 % (13-45); MEAN CORPUSCULAR HEMOGLOBIN 30.5 pg (27.0-33.4); MEAN CORPUSCULAR HGB CONC 33.6 g/dL (32.0-36.0); MEAN CORPUSCULAR VOLUME 91 fl (80-97); MONOCYTES % (AUTO) 12.1 % (3-13); PLATELET COUNT 120 10^3/uL (150-450); RED BLOOD COUNT 4.13 10^6/uL (4.35-5.55); RED CELL DISTRIBUTION WIDTH 13.7 % (11.5-14.0); SEGMENTED NEUTROPHILS % (AUTO) 43.8 % (42-78); TOTAL CELLS COUNTED % (AUTO) 100 %; WHITE BLOOD COUNT 5.9 10^3/uL (4.0-10.5)
[2018-07-15 12:09] LABS: ANION GAP 9 (5-19); BLOOD UREA NITROGEN 35 mg/dL (7-20); CALCIUM 10.5 mg/dL (8.4-10.2); CARBON DIOXIDE 25 mmol/L (22-30); CHLORIDE 112 mmol/L (98-107); GLUCOSE 84 mg/dL (75-110); PHOSPHORUS 3.9 mg/dL (2.5-4.5); POTASSIUM 5.6 mmol/L (3.6-5.0); SODIUM 145.9 mmol/L (137-145)
== END ==
LOC: OD 11:04
PROVIDERS: ATTEND Internal Medicine Nephrology
DX: N18.3 Chronic kidney disease, stage 3 (moderate) (principal); N25.81 Secondary hyperparathyroidism of renal origin; D64.9 Anemia, unspecified; E83.52 Hypercalcemia
CPT/HCPCS: 36415; 80048; 82040; 82306; 83970; 84100; 85025

== ENCOUNTER → 2018-07-21 | Outpatient (CLI) | payer MEDICARE | LOC: OD 10:37 | PROVIDERS: ATTEND Internal Medicine Nephrology | DX: E87.5 Hyperkalemia (principal) | CPT/HCPCS: 36415; 84132 ==

== ENCOUNTER 2018-09-15 16:23 | Emergency (ER) | payer MEDICARE ==
--- NOTE | 2018-09-15 18:23 | ER Document Report ---
ED Medical Screen (RME) - General Chief Complaint: Foot Pain Stated Complaint: HEEL PAIN Time Seen by Provider: 09/15/18 18:20 Primary Care Provider: REGAN JAY MD [Primary Care Provider] - Follow up as needed Mode of Arrival: Wheelchair Information source: Patient Notes: 82-year-old male presents to ED for complaint of severe left heel pain to the medial aspect. He states he has seen multiple doctors over the last 3-6 months and everybody says it is a callus but this pain is way more than a callus. He states today he tried to stand up and the pain was such severe that he came to the emergency room. He does have a history of a left-sided stroke coronary artery disease with a heart catheter and stents and kidney disease. He does drink 6-8 ounces of wine every day. Patient is alert oriented respirations regular and unlabored speaking in full sentences states that the pain is much worse than ever before she has been trying to care for but this pain is too bad for her. I have greeted and performed a rapid initial assessment of this patient. A comprehensive ED assessment and evaluation of the patient, analysis of test results and completion of medical decision making process will be conducted by an additional ED providers. TRAVEL OUTSIDE OF THE [place] IN LAST 30 DAYS: No - Related Data Allergies/Adverse Reactions: No Known Allergies Allergy (Verified 03/20/18 12:31) Past Medical History - Social History Chew tobacco use (# tins/day): No Frequency of alcohol use: None Drug Abuse: None - Past Medical History Cardiac Medical History: Reports: Hx Hypercholesterolemia, Hx Hypertension Neurological Medical History: Denies: Hx Cerebrovascular Accident, Hx Seizures Renal/ Medical History: Denies: Hx Peritoneal Dialysis Musculoskeltal Medical History: Reports Hx Arthritis Past Surgical History: Reports: Hx Cholecystectomy, Hx Colostomy - Partial colectomy for infection, resulted in colostomy, reversed Physical Exam - Vital signs Vitals: Temp Pulse Resp BP Pulse Ox 97.5 F 69 18 96/65 L 98 09/15/18 16:41 09/15/18 16:41 09/15/18 16:41 09/15/18 16:41 09/15/18 16:41 Course - Vital Signs Vital signs: Temp Pulse Resp BP Pulse Ox 97.5 F 69 18 96/65 L 98 09/15/18 16:41 09/15/18 16:41 09/15/18 16:41 09/15/18 16:41 09/15/18 16:41 Doctor's Discharge - Discharge Referrals: REGAN JAY MD [Primary Care Provider] - Follow up as needed
--- NOTE | 2018-09-15 18:50 | RADIOLOGY REPORT (SQ) ---
EXAM DESCRIPTION: FOOT LEFT COMPLETE COMPLETED DATE/TIME: 09/15/2018 6:39 pm REASON FOR STUDY: Left heel pain for 3-6 months much worse today COMPARISON: None. NUMBER OF VIEWS: Three views. TECHNIQUE: AP, lateral and oblique radiographic images acquired of the left foot. LIMITATIONS: None. FINDINGS: MINERALIZATION: Normal. BONES: No acute fracture. No focal finding in the calcaneus. Extensive erosive changes of the 1st M TP joint typical of gout. JOINTS: No effusions. SOFT TISSUES: No soft tissue swelling. No foreign body. OTHER: No other significant finding. IMPRESSION: Gouty changes involving the 1st MTP joint. No significant finding in the calcaneus. TECHNICAL DOCUMENTATION: JOB ID: [id number] [employer]- All Rights Reserved Reading location - IP/workstation name: [email or web address]
[2018-09-15 19:15] LABS: ABSOLUTE EOSINOPHILS # (AUTO) 0.2 10^3/uL (0.0-0.6); ABSOLUTE MONOCYTES (AUTO) 0.8 10^3/uL (0.1-1.4); ABSOLUTE NEUT (AUTO) 3.8 10^3/uL (1.7-8.2); BASOPHILS % (AUTO) 0.6 % (0-2); EOSINOPHILS % (AUTO) 3.2 % (0-6); HEMATOCRIT 36.9 % (37.9-51.0); HEMOGLOBIN 12.5 g/dL (13.5-17.0); LYMPHOCYTES % (AUTO) 29.2 % (13-45); MEAN CORPUSCULAR HEMOGLOBIN 30.7 pg (27.0-33.4); MEAN CORPUSCULAR HGB CONC 33.9 g/dL (32.0-36.0); MEAN CORPUSCULAR VOLUME 91 fl (80-97); PLATELET COUNT 127 10^3/uL (150-450); RED BLOOD COUNT 4.07 10^6/uL (4.35-5.55); RED CELL DISTRIBUTION WIDTH 13.8 % (11.5-14.0); TOTAL CELLS COUNTED % (AUTO) 100 %
[2018-09-15 19:36] LABS: ALANINE AMINOTRANSFERASE 43 U/L (21-72); ALBUMIN 3.9 g/dL (3.5-5.0); ALKALINE PHOSPHATASE 66 U/L (38-126); ANION GAP 9 (5-19); ASPARTATE AMINO TRANSFERASE 55 U/L (17-59); BILIRUBIN,DIRECT 0.2 mg/dL (0.0-0.4); BILIRUBIN,TOTAL 0.4 mg/dL (0.2-1.3); BLOOD UREA NITROGEN 39 mg/dL (7-20); CALCIUM 10.7 mg/dL (8.4-10.2); CARBON DIOXIDE 26 mmol/L (22-30); CHLORIDE 108 mmol/L (98-107); GLUCOSE 88 mg/dL (75-110); POTASSIUM 5.1 mmol/L (3.6-5.0); SODIUM 142.8 mmol/L (137-145); TOTAL PROTEIN 6.6 g/dL (6.3-8.2); URIC ACID 9.2 mg/dL (3.5-8.5)
[2018-09-15] MEDS ORDERED: CEPHALEXIN 500 MG CAPSULE PO ONE (23:04)
[2018-09-15] MEDS ORDERED: ACETAMINOPHEN 325 MG TABLET PO ONE (23:04)
--- NOTE | 2018-09-15 23:09 | ER Document Report ---
ED General - General Chief Complaint: Foot Pain Stated Complaint: HEEL PAIN Time Seen by Provider: 09/15/18 18:20 Primary Care Provider: REGAN JAY MD [Primary Care Provider] - Follow up as needed Mode of Arrival: Wheelchair Notes: Patient is an 82-year-old male with a past medical history of chronic kidney disease, prior CVA with expressive aphasia, presents complaining of 3 months of left heel pain although much worse in the last 24 hours. Has been seen by his general physician as well as a branch associate regarding this issue and was diagnosed with a callus to the area. States that he has been treating with topical lidocaine and tramadol at home with improvement of the pain to the area. Walking on it or touching the area worsens the pain. He does describe the pain as being a moderate to severe throbbing, aching, constant pain that has been progressively worsening over the last 3 months but dramatically worse in the last 24 hours. Denies associated fever or constitutional symptoms. His is concerned that the area has become red over the past 24 hours. Denies any history of similar symptoms in the past. TRAVEL OUTSIDE OF THE [place] IN LAST 30 DAYS: No - Related Data Allergies/Adverse Reactions: No Known Allergies Allergy (Verified 03/20/18 12:31) Past Medical History - General Information source: Patient - Social History Smoking Status: Never Smoker Chew tobacco use (# tins/day): No Frequency of alcohol use: None Drug Abuse: None Lives with: Spouse/Significant other Family History: Reviewed & Not Pertinent Patient has suicidal ideation: No Patient has homicidal ideation: No - Past Medical History Cardiac Medical History: Reports: Hx Hypercholesterolemia, Hx Hypertension Neurological Medical History: Denies: Hx Cerebrovascular Accident, Hx Seizures Renal/ Medical History: Denies: Hx Peritoneal Dialysis Musculoskeletal Medical History: Reports Hx Arthritis Past Surgical History: Reports: Hx Cholecystectomy, Hx Colostomy - Partial colectomy for infection, resulted in colostomy, reversed - Immunizations Hx Pneumococcal Vaccination: 06/17/16 Review of Systems - Review of Systems Notes: Constitutional: Negative for fever. HENT: Negative for sore throat. Eyes: Negative for visual changes. Cardiovascular: Negative for chest pain. Respiratory: Negative for shortness of breath. Gastrointestinal: Negative for abdominal pain, vomiting or diarrhea. Genitourinary: Negative for dysuria. Musculoskeletal: Negative for back pain. Skin: Positive for rash of the left foot as well as callus of the left foot Neurological: Negative for headaches, weakness or numbness. 10 point ROS negative except as marked above and in HPI. Physical Exam - Vital signs Vitals: Temp Pulse Resp BP Pulse Ox 97.5 F 69 18 96/65 L 98 09/15/18 16:41 09/15/18 16:41 09/15/18 16:41 09/15/18 16:41 09/15/18 16:41 Interpretation: Hypotensive - Resolved at the time of my assessment Notes: PHYSICAL EXAMINATION: GENERAL: Elderly male in no acute distress HEAD: Atraumatic, normocephalic. EYES: Pupils equal round and reactive to light, extraocular movements intact, sclera anicteric, conjunctiva are normal. ENT: nares patent, oropharynx clear without exudates. Mild dry mucous membranes. NECK: Normal range of motion, supple without lymphadenopathy LUNGS: Breath sounds clear to auscultation bilaterally and equal. No wheezes ra les or rhonchi. HEART: Regular rate and rhythm without murmurs ABDOMEN: Soft, nontender, normoactive bowel sounds. No guarding, no rebound. No masses appreciated. EXTREMITIES: Normal range of motion, no pitting or edema. No cyanosis. NEUROLOGICAL: No focal neurological deficits. Moves all extremities spontaneously and on command. PSYCH: Normal mood, normal affect. SKIN: Warm, Dry, normal turgor, there is mild erythema and swelling to the medial aspect of the left heel around an area of what appears to be a callus. No induration or functions to the area. Course - Re-evaluation Re-evalutation: 09/15/18 23:06 Patient presents with 3 months of pain to his left inner heel which became much more painful within the past 24 hours. The patient has been seen by podiatry, diagnosed with a callus but states that the area became much worse today. On examination there appears to be a cellulitis of the affected area without any visible induration or fluid collection. Bedside ultrasound without evidence of fluid collection although does still cobblestoning. No tracing erythema of the leg. No fever or constitutional symptoms. Patient had an x-ray of the heel that does not demonstrate any evidence of underlying osteoarthritis and I do not clinically suspect this diagnosis. The patient has been started on cephalexin. Tylenol for pain. I have referred to podiatry. At this time will discharge with return precautions and follow-up recommendations. Verbal discharge instructions given a the bedside and opportunity for questions given. Medication warnings reviewed. Patient is in agreement with this plan and has verbalized understanding of return precautions and the need for primary care follow-up in the next 24-72 hours. - Vital Signs Vital signs: Temp Pulse Resp BP Pulse Ox 97.5 F 69 18 96/65 L 100 09/15/18 16:41 09/15/18 16:41 09/15/18 16:41 09/15/18 16:41 09/15/18 22:24 - Laboratory Result Diagrams: 09/15/18 18:49 09/15/18 18:49 Laboratory results interpreted by me: 09/15/18 09/15/18 18:49 18:49 RBC 4.07 L Hgb 12.5 L Hct 36.9 L Plt Count 127 L Potassium 5.1 H Chloride 108 H BUN 39 H Creatinine 2.59 H Est GFR ( Amer) 29 L Est GFR (Non-Af Amer) 24 L Uric Acid 9.2 H Calcium 10.7 H - Diagnostic Test Radiology reviewed: Image reviewed, Reports reviewed Radiology results interpreted by me: 09/15/18 23:07 Left foot x-ray: No evidence of underlying ostium myelitis at the calcaneus Discharge - Discharge Clinical Impression: Cellulitis of left heel, Callus of heel Condition: Good Disposition: HOME, SELF-CARE Additional Instructions: The rash is likely due to infection of your skin. You need to take the antibiotics as prescribed. Do not stop even if the rash goes away until you have completed all the antibiotics. You should also return if you develop fevers with temperature greater than 101, persistent vomiting, worsening pain, or have any other symptoms that are concerning to you. Please also follow-up with the branch associate listed below regarding what appears to be an overlying callus to the area. For your pain you may continue to use the topical lidocaine and tramadol that you have been using. I would also recommend Tylenol 1000 mg every 6 hours as scheduled regardless of your level of pain to reduce the need for tramadol. Prescriptions: Cephalexin Monohydrate [Keflex 500 mg Capsule] 500 mg PO Q6H 7 Days capsule Referrals: REGAN JAY MD [Primary Care Provider] - Follow up as needed HENRY VALLES DPM [ACTIVE STAFF] - Follow up in 3-5 days
[2018-09-15 23:18] VITALS: BP 119/62
== END 2018-09-15 23:21 | disposition home or self-care (01) ==
LOC: ER 16:23
DX: L03.116 Cellulitis of left lower limb (principal); L84 Corns and callosities; E78.00 Pure hypercholesterolemia, unspecified; I10 Essential (primary) hypertension; I69.320 Aphasia following cerebral infarction; Z90.49 Acquired absence of other specified parts of digestive tract
CPT/HCPCS: 99283; 36415; 84550; 85025; 80053; 73630; A9270 ×2

== ENCOUNTER → 2019-02-10 | Outpatient (CLI) | payer MEDICARE ==
[2019-02-10 15:30] LABS: ABSOLUTE EOSINOPHILS # (AUTO) 0.3 10^3/uL (0.0-0.6); ABSOLUTE LYMPHOCYTES (AUTO) 1.7 10^3/uL (0.5-4.7); ABSOLUTE MONOCYTES (AUTO) 0.8 10^3/uL (0.1-1.4); ABSOLUTE NEUT (AUTO) 3.3 10^3/uL (1.7-8.2); BASOPHILS % (AUTO) 0.7 % (0-2); EOSINOPHILS % (AUTO) 5.5 % (0-6); HEMATOCRIT 39.8 % (37.9-51.0); HEMOGLOBIN 13.1 g/dL (13.5-17.0); LYMPHOCYTES % (AUTO) 27.9 % (13-45); MEAN CORPUSCULAR HEMOGLOBIN 30.4 pg (27.0-33.4); MEAN CORPUSCULAR HGB CONC 32.8 g/dL (32.0-36.0); MEAN CORPUSCULAR VOLUME 93 fl (80-97); MONOCYTES % (AUTO) 13.1 % (3-13); PLATELET COUNT 138 10^3/uL (150-450); RED BLOOD COUNT 4.29 10^6/uL (4.35-5.55); RED CELL DISTRIBUTION WIDTH 14.3 % (11.5-14.0); SEGMENTED NEUTROPHILS % (AUTO) 52.8 % (42-78); TOTAL CELLS COUNTED % (AUTO) 100 %; WHITE BLOOD COUNT 6.2 10^3/uL (4.0-10.5)
[2019-02-10 15:38] LABS: APPEARANCE,URINE CLEAR; BILIRUBIN,URINE NEGATIVE (NEGATIVE); COLOR,URINE YELLOW; GLUCOSE, URINE NEGATIVE (NEGATIVE); KETONES,URINE NEGATIVE (NEGATIVE); LEUKOCYTE ESTERASE,URINE NEGATIVE (NEGATIVE); NITRITE,URINE NEGATIVE (NEGATIVE); PROTEIN,URINE NEGATIVE (NEGATIVE); URINE SPECIFIC GRAVITY 1.017; UROBILINOGEN,URINE NEGATIVE mg/dL (<2.0)
[2019-02-10 16:01] LABS: ALBUMIN 3.9 g/dL (3.5-5.0); ANION GAP 8 (5-19); BLOOD UREA NITROGEN 40 mg/dL (7-20); CALCIUM 10.3 mg/dL (8.4-10.2); CARBON DIOXIDE 27 mmol/L (22-30); CHLORIDE 111 mmol/L (98-107); GLUCOSE 89 mg/dL (75-110); PHOSPHORUS 3.3 mg/dL (2.5-4.5); POTASSIUM 4.6 mmol/L (3.6-5.0)
== END ==
LOC: OD 14:57
PROVIDERS: ATTEND Internal Medicine Nephrology
DX: N18.4 Chronic kidney disease, stage 4 (severe) (principal); E83.52 Hypercalcemia; D63.1 Anemia in chronic kidney disease; N25.81 Secondary hyperparathyroidism of renal origin
CPT/HCPCS: 36415; 80069; 81001; 82043; 82570; 83970; 84165; 85025

== ENCOUNTER → 2019-02-26 | Outpatient (CLI) | payer MEDICARE ==
--- NOTE | 2019-02-26 17:01 | RADIOLOGY REPORT (SQ) ---
EXAM DESCRIPTION: T SPINE AP/LAT COMPLETED DATE/TIME: 02/26/2019 4:26 pm REASON FOR STUDY: NECK AND UPPER BACK TENDERNESS I10 ESSENTIAL (PRIMARY) HYPERTENSION COMPARISON: None. NUMBER OF VIEWS: Five views. TECHNIQUE: AP and lateral radiographic images acquired of the thoracic spine. LIMITATIONS: None. FINDINGS: MINERALIZATION: Normal. ALIGNMENT: Normal. No scoliosis. VERTEBRAE: No fracture or bone lesion. Maintained height, normal segmentation. DISCS: Multilevel thoracic spondylosis and small osteophyte formations. HARDWARE: None in the spine. MEDIASTINUM AND SOFT TISSUES: Vascular calcifications. Normal mediastinal contour. VISUALIZED LUNG REYES: Clear. OTHER: Partially visualized IVC filter. Prior cholecystectomy. IMPRESSION: Mild multilevel spondylosis without definite acute bony abnormality of the thoracic spin e. TECHNICAL DOCUMENTATION: JOB ID: [id number] [employer]- All Rights Reserved Reading location - IP/workstation name: [email or web address]
--- NOTE | 2019-02-26 17:04 | RADIOLOGY REPORT (SQ) ---
EXAM DESCRIPTION: C SP 3 VWS OR LESS COMPLETED DATE/TIME: 02/26/2019 4:26 pm REASON FOR STUDY: NECK AND UPPER BACK TENDERNESS I10 ESSENTIAL (PRIMARY) HYPERTENSION COMPARISON: None. NUMBER OF VIEWS: Three views. TECHNIQUE: AP, lateral and odontoid radiographic images acquired of the cervical spine. LIMITATIONS: None. FINDINGS: MINERALIZATION: Normal. ALIGNMENT: Anatomic. VERTEBRAE: Vertebral bodies of normal height. DISCS: Degenerative changes with osteophytosis and mild disc height loss greatest at C5-6 and C6-7. Mild multilevel facet arthropathy HARDWARE: None in the spine. SOFT TISSUES: No masses or calcifications. Lung apices clear. Vascular calcifications. OTHER: Chronic appearing ossific densities posterior to the C7-T1 spinous process likely degenerative . IMPRESSION: No evidence of acute bony abnormality of the cervical spine. Mild multilevel degenerative changes greatest at C5-6 and C6-7. TECHNICAL DOCUMENTATION: JOB ID: [id number] [employer]- All Rights Reserved Reading location - IP/workstation name: [email or web address]
== END ==
LOC: OD 15:53
PROVIDERS: ATTEND Internal Medicine Nephrology
DX: M50.323 Other cervical disc degeneration at C6-C7 level (principal); M47.894 Other spondylosis, thoracic region
CPT/HCPCS: 72040; 72070

== ENCOUNTER 2019-03-27 11:50 | Emergency (ER) | payer MEDICARE ==
[2019-03-27] MEDS ORDERED: ACETAMINOPHEN 325 MG TABLET PO ONE (12:11)
--- NOTE | 2019-03-27 12:12 | ER Document Report ---
ED Medical Screen (RME) - General Chief Complaint: Knee Pain Stated Complaint: RIGHT HAND PAIN Time Seen by Provider: 03/27/19 12:08 Primary Care Provider: REGAN JAY MD [Primary Care Provider] - Follow up as needed TRAVEL OUTSIDE OF THE [place] IN LAST 30 DAYS: No - HPI Notes: 03/27/19 12:11 Patient is an 83-year-old male with a history of arthritis who presents complaining of right hand pain and right knee pain that began over the last day without injury. He has not noticed any swelling. Pain does not radiate. No fever. I have treated and performed a rapid initial assessment of this patient. A comprehensive ED assessment and evaluation of the patient, analysis of test results and completion of medical decision making process will be conducted by additional ED providers. PHYSICAL EXAMINATION: GENERAL: Well-appearing, well-nourished and in no acute distress. Answers questions appropriately. - Related Data Allergies/Adverse Reactions: No Known Allergies Allergy (Verified 03/27/19 12:06) Past Medical History - Past Medical History Cardiac Medical History: Reports: Hx Hypercholesterolemia, Hx Hypertension Neurological Medical History: Denies: Hx Cerebrovascular Accident, Hx Seizures Renal/ Medical History: Denies: Hx Peritoneal Dialysis Musculoskeltal Medical History: Reports Hx Arthritis Past Surgical History: Reports: Hx Cholecystectomy, Hx Colostomy - Partial colectomy for infection, resulted in colostomy, reversed Physical Exam - Vital signs Vitals: Temp Pulse Resp BP Pulse Ox 98.8 F 99 16 168/89 H 99 03/27/19 12:04 03/27/19 12:04 03/27/19 12:04 03/27/19 12:04 03/27/19 12:04 Course - Vital Signs Vital signs: Temp Pulse Resp BP Pulse Ox 98.8 F 99 16 168/89 H 99 03/27/19 12:04 03/27/19 12:04 03/27/19 12:04 03/27/19 12:04 03/27/19 12:04 Doctor's Discharge - Discharge Referrals: REGAN JAY MD [Primary Care Provider] - Follow up as needed
--- NOTE | 2019-03-27 12:47 | RADIOLOGY REPORT (SQ) ---
EXAM DESCRIPTION: HAND RIGHT 3 VIEWS COMPLETED DATE/TIME: 03/27/2019 12:38 pm REASON FOR STUDY: acute on chronic pain COMPARISON: None. EXAM PARAMETERS: NUMBER OF VIEWS: Three views. TECHNIQUE: AP, lateral and oblique radiographic images acquired of the right hand. LIMITATIONS: None. FINDINGS: MINERALIZATION: Normal. BONES: No acute fracture or dislocation. No worrisome bone lesions. JOINTS: No dislocation. Scattered degenerative changes with joint space loss and subchondral scleros is and osteophytosis at scattered interphalangeal joints. Additional degenerative changes at the 1st and 2nd carpometacarpal joint and radiocarpal joint. Chondrocalcinosis of the triangular fibrocarti mark. SOFT TISSUES: Scattered vascular calcifications OTHER: No other significant finding. IMPRESSION: No definite acute bony abnormality. Scattered osteoarthritic changes at the interphalangeal joints and carpals. Chondrocalcinosis which can be seen with osteoarthritis, CPPD arthropathy among other entities. TECHNICAL DOCUMENTATION: JOB ID: [id number] [employer]- All Rights Reserved Reading location - IP/workstation name: [email or web address]
--- NOTE | 2019-03-27 12:50 | RADIOLOGY REPORT (SQ) ---
EXAM DESCRIPTION: KNEE RIGHT 4 VIEWS COMPLETED DATE/TIME: 03/27/2019 12:38 pm REASON FOR STUDY: acute on chronic pain COMPARISON: 02/05/2017 NUMBER OF VIEWS: Four views. TECHNIQUE: AP, bilateral oblique and cross-table lateral radiographic images acquired of the right k nee. LIMITATIONS: None. FINDINGS: MINERALIZATION: Decreased. BONES: 3 compartment osteophytosis. Joint spaces are relatively well-maintained. JOINT: Small joint effusion likely. Chondrocalcinosis in the medial and lateral compartments. SOFT TISSUES: Vascular calcifications. OTHER: No other significant finding. IMPRESSION: Small joint effusion without other evidence of acute bony abnormality. Moderate 3 compartment osteoarthritis. Chondrocalcinosis which can be seeing with osteoarthritis, CP PD arthropathy among other entities. TECHNICAL DOCUMENTATION: JOB ID: [id number] [employer]- All Rights Reserved Reading location - IP/workstation name: [email or web address]
--- NOTE | 2019-03-27 15:12 | ER Document Report ---
HPI - HPI Patient complains to provider of: Right wrist and right knee pain Time Seen by Provider: 03/27/19 12:08 Onset: Other - 3 days Onset/Duration: Persistent Quality of pain: Achy Pain Level: 4 Context: This 83-year-old male with history of arthritis presents emergency department with complaints of right wrist and right knee pain. Denies falling. He does admit to falling 3 weeks ago but was evaluated by his primary care provider after that fall. He reports it just started hurting. Denies trauma. Denies fever vomiting diarrhea. He reports he does have tramadol but he does not take it. Patient reports his knee and wrist hurt so much that he has to have help getting in bed. Patient reports his helps him. Associated Symptoms: None Exacerbated by: Movement Relieved by: Denies Similar symptoms previously: No Recently seen / treated by doctor: No Past Medical History - General Information source: Patient - Social History Smoking Status: Never Smoker Chew tobacco use (# tins/day): No Frequency of alcohol use: Social Drug Abuse: None Lives with: Family Family History: Reviewed & Not Pertinent Patient has suicidal ideation: No Patient has homicidal ideation: No - Past Medical History Cardiac Medical History: Reports: Hx Hypercholesterolemia, Hx Hypertension Neurological Medical History: Denies: Hx Cerebrovascular Accident, Hx Seizures Renal/ Medical History: Denies: Hx Peritoneal Dialysis Musculoskeletal Medical History: Reports Hx Arthritis Past Surgical History: Reports: Hx Cholecystectomy, Hx Colostomy - Partial colectomy for infection, resulted in colostomy, reversed - Immunizations Hx Pneumococcal Vaccination: 06/17/16 Vertical Provider Document - CONSTITUTIONAL Agree With Documented VS: Yes Exam Limitations: No Limitations General Appearance: WD/WN, No Apparent Distress - INFECTION CONTROL TRAVEL OUTSIDE OF THE [place] IN LAST 30 DAYS: No - HEENT HEENT: Atraumatic, Normocephalic - NECK Neck: Supple - RESPIRATORY Respiratory: No Respiratory Distress - CARDIOVASCULAR Cardiovascular: Regular Rate - MUSCULOSKELETAL/EXTREMETIES Musculoskeletal/Extremeties: MAEW, FROM, Tender - Right wrist tender no obvious deformity x-ray shows arthritis. No erythema/ warmth/ swelling. Right knee tender with movement no obvious deformity no erythema no warmth no swelling. - NEURO Level of Consciousness: Awake, Alert, Appropriate Motor/Sensory: No Motor Deficit - DERM Integumentary: Warm, Dry Adult Front & Back Diagram: 1 - Patient reports pain 2 - Patient reports pain with movement Course - Re-evaluation Re-evalutation: 03/27/19 15:07 Medications reviewed. Patient was instructed to take his tramadol as prescribed. He was also instructed to follow-up with his primary care provider on Saturday for recheck. He was instructed on signs and symptoms of infection and instructed to return to the hospital for those symptoms. He verbalized understanding all instructions. His is on the phone she will be coming to pick him up. Hand X-Ray 03/27/19 12:11 IMPRESSION: No definite acute bony abnormality. Scattered osteoarthritic changes at the interphalangeal joints and carpals. Chondrocalcinosis which can be seen with osteoarthritis, CPPD arthropathy among other entities. Knee X-Ray 03/27/19 12:11 IMPRESSION: Small joint effusion without other evidence of acute bony abnormality. Moderate 3 compartment osteoarthritis. Chondrocalcinosis which can be seeing with osteoarthritis, CPPD arthropathy among other entities. - Vital Signs Vital signs: Temp Pulse Resp BP Pulse Ox 98.8 F 99 16 168/89 H 99 03/27/19 12:04 03/27/19 12:04 03/27/19 12:04 03/27/19 12:04 03/27/19 12:04 Discharge - Discharge Clinical Impression: Arthritis, Effusion, right knee Condition: Stable Disposition: HOME, SELF-CARE Instructions: Rick Wrap ([facility]), Arthritis ([facility]), Knee Effusion ([facility]) Additional Instructions: *You have been evaluated for right wrist and right knee pain, arthritis *Maintain the rick wrap to your knee and wrist for comfort *Monitor your knee and wrist for signs of infection such as redness warmth increased pain swelling. *Take your tramadol as prescribed for pain *Follow up with your primary care provider Saturday *Return to ED for worsening condition, changes, needs Referrals: REGAN JAY MD [Primary Care Provider] - Follow up as needed [facility] [Provider Group] - Follow up in 3-5 days
[2019-03-27 15:32] VITALS: BP 127/91
== END 2019-03-27 15:32 | disposition home or self-care (01) ==
LOC: ER 11:50
DX: M17.11 Unilateral primary osteoarthritis, right knee (principal); M25.531 Pain in right wrist; M25.561 Pain in right knee; E78.00 Pure hypercholesterolemia, unspecified; I10 Essential (primary) hypertension; Z90.49 Acquired absence of other specified parts of digestive tract
CPT/HCPCS: 73130; 73564; A9270; 99283

== ENCOUNTER → 2019-12-30 | Outpatient (CLI) | payer OTHER ==
--- NOTE | 2019-12-30 16:34 | RADIOLOGY REPORT (SQ) ---
EXAM DESCRIPTION: CT ABD/PELVIS WITH IV ORAL IMAGES COMPLETED DATE/TIME: 12/30/2019 4:11 pm REASON FOR STUDY: ABD PAIN (R10.9) R10.9 UNSPECIFIED ABDOMINAL PAIN COMPARISON: None. TECHNIQUE: CT scan of the abdomen and pelvis performed using helical scanning technique with dynamic intravenous contrast injection. Patient was given oral contrast. Images reviewed with lung, soft ti ssue, and bone windows. Reconstructed coronal and sagittal MPR images reviewed. Delayed images for ev aluation of the urinary system also acquired. All images stored on PACS. All CT scanners at this facility use dose modulation, iterative reconstruction, and/or weight based d osing when appropriate to reduce radiation dose to as low as reasonably achievable (ALARA). [facility]: Dose Right [facility]: CareDose [facility]: Dose Right [facility]: Teradose 4D [facility]: Bulu Box CONTRAST TYPE AND DOSE: contrast/concentration: Isovue 300.00 mmol/ml; Total Contrast Delivered: 89. 8 ml; Total Saline Delivered: 22.0 ml RENAL FUNCTION: Creatinine 1.6 RADIATION DOSE: CT Rad equipment meets quality standard of care and radiation dose reduction techniq ues were employed. CTDIvol: 6.6 - 9.1 mGy. DLP: 828 mGy-cm.. LIMITATIONS: None. FINDINGS: LOWER CHEST: No acute findings. Three-vessel coronary atherosclerosis. LIVER: Normal size. No masses. No dilated ducts. SPLEEN: Normal size. No focal lesions. PANCREAS: No masses. No significant calcifications. No adjacent inflammation or peripancreatic fluid collections. Pancreatic duct not dilated. GALLBLADDER: No identified stones by CT criteria. No inflammatory changes to suggest cholecystitis. ADRENAL GLANDS: No significant masses or asymmetry. RIGHT KIDNEY AND URETER: Diffuse cortical thinning. No solid masses. No significant calcifications . No hydronephrosis or hydroureter. LEFT KIDNEY AND URETER: Diffuse cortical thinning. No solid masses. No significant calcifications. No hydronephrosis or hydroureter. AORTA AND VESSELS: Aortoiliac atherosclerosis without aneurysm. 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 PARKER is opacified. Inferior vena cava filter is present at L2-3. Vena cava filter hook abuts the anterio r IVC wall suprarenal. RETROPERITONEUM: No retroperitoneal adenopathy, hemorrhage or masses. BOWEL AND PERITONEAL CAVITY: No evidence of intestinal obstruction. Postsurgical changes from subtot al colectomy with evidence of prior right-sided ostomy likely. No focal bowel wall thickening. APPENDIX: Absent. PELVIS: Decompressed urinary bladder. No pelvic free fluid, adenopathy or mass. ABDOMINAL WALL: Postsurgical changes from midline laparotomy and likely right-sided ostomy. BONES: No acute bony abnormality. 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 Lower lumbar facet arthropathy. OTHER: No other significant finding. IMPRESSION: 1. Extensive postsurgical changes from prior bowel resection. No evidence of intestina l obstruction or other acute intra-abdominal/pelvic process. 2. 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 3. Coronary atherosclerosis. Multiple additional incidental findings as above. TECHNICAL DOCUMENTATION: JOB ID: [id number] Quality ID # [id number]: Final reports with documentation of one or more dose reduction techniques (e.g., Au tomated exposure control, adjustment of the mA and/or kV according to patient size, use of iterative reconstruction technique) 2010 [employer]- All Rights Reserved Reading location - IP/workstation name: [email or web address]
== END ==
LOC: RAD 13:09
PROVIDERS: ATTEND Physician Assistant
DX: R10.9 Unspecified abdominal pain (principal); I70.1 Atherosclerosis of renal artery; I70.0 Atherosclerosis of aorta; I25.10 Atherosclerotic heart disease of native coronary artery without angina pectoris
CPT/HCPCS: 74177; 82565